=== PATIENT | male | born 1960 | race Two or more races ===

== ENCOUNTER 2019-08-30 11:46 | Inpatient (IN) | payer BC ==
[~2019-08-30] VITALS: Ht 167.6 cm; Wt 127.9 kg
[2019-08-30] VITALS (21 sets, daily range): BP systolic 38–160; BP diastolic 11–84
[~2019-08-30 11:46] MED LIST: CIPR-173 PO
[2019-08-30] MEDS ORDERED: SODIUM CHLORIDE 0.9% 1,000 ML IV ONE ×3 (11:58→15:15)
[2019-08-30] MEDS ORDERED: IPRATROPIUM BROM 0.5 MG/2.5ML INH SOL NEB ONE (12:00)
[2019-08-30] MEDS ORDERED: ALBUTEROL SULF 2.5 MG/0.5ML(0.5%) NEB SOLN NEB ONE ×2 (12:00→15:00)
[2019-08-30] MEDS ORDERED: PIPERACILLIN-TAZOB 3.375GM 100 ML IV ONE (12:00)
[2019-08-30] MEDS ORDERED: methylPREDNISolone SOD SUCC 125 MG/2 ML VL IV ONE (12:00)
[2019-08-30] MEDS ORDERED: ETOMIDATE (2MG/ML) 20ML VIAL IV ONE ×3 (12:15→13:30)
[2019-08-30] MEDS ORDERED: SUCCINYLCHOLINE CHLORIDE 20 MG/ML 10ML VIAL IV ONE ×2 (12:15→13:30)
--- NOTE | 2019-08-30 12:15 | NUR ---
Respiratory note: PT WAS INTUBATED, AND PLACED ON VENT V-[address] NEVILLE. VENT IS PLUGGED INTO RED OUTLET, ALL VENT ALARMS ARE AUDIBLE, AND FUNCTIONING. AMBU BAG/MASK IS AT BEDSIDE CONNECTED TO AN O2 SOURCE. ETT IS 8.0 @ THE 23 LIP LINE, SECURED WITH A FEDERICO. NO ORAL/SKIN BREAK DOWN NOTED. BS ARE CLEAR/DIMINISHED BILATERALLY. SX FOR SCANT AMOUNT OF THIN BLOODY SECRETIONS. NO GAG REFLEX NOTED. PT SKIN IS COOL,DIAPHORETIC, AND APPEARS TO BE MOTTLED. RT GEORGE, LEAD RT MADISON, AND RN AT BEDSIDE. WILL CONTINUE TO MONITOR PT.
[2019-08-30] MEDS ORDERED: MIDAZOLAM DRIP 50 mg/50mL 50 ML IV ONE (12:34)
[2019-08-30] MEDS ORDERED: NOREPINEPHRINE 8 MG/250ML KIT 250 ML IV ONE (13:09)
[2019-08-30] MEDS: NOREPINEPHRINE 8 MG/250ML KIT 250 ML IV SCH ×2 (13:10→23:43)
[2019-08-30 13:19] LABS: Hemoglobin 11.7 g/dL (13.5-17.5)
[2019-08-30 13:22] LABS: Hematocrit 39.4 % (41.0-53.0); Mean Corpuscular Hgb Conc. 29.8 g/dL (32.0-36.0); Mean Corpuscular Volume 80.8 fL (80.0-100.0); Platelet Count (auto) 133 10^3/uL (140-450); Red Blood Cells 4.88 10^6/uL (4.5-5.90); Red Cell Distribution Width 19.3 % (11.8-14.3); White Blood Cell 20.5 10^3/uL (4.4-10.8)
[2019-08-30] MEDS ORDERED: MIDAZOLAM DRIP 50 mg/50mL 50 ML IV SCH (13:27)
[2019-08-30 13:34] LABS: INR 1.76 (0.9-1.15); Partial Thromboplastin Time 48.6 sec (23.64-32.05)
[2019-08-30 13:48] LABS: Basophils % (manual) 0 (0.0-2.0); Blast Cells 0; Eosinophils % (manual) 0 (0-7); Promyelocytes % 0; Reactive Lymphocytes 0
[2019-08-30 14:00] LABS: Band Neutrophils % (manual) 20; Lymphocytes % (manual) 11 (10.0-50.0); Metamyelocytes % 10; Monocytes % (manual) 6 (0-12); Myelocytes % 5
[2019-08-30] MEDS ORDERED: fentaNYL Drip 2500mCg/250mlNS 250 ML IV SCH (14:54)
[2019-08-30 14:58] LABS: Sodium 138 mmol/L (136-145)
[2019-08-30 14:59] LABS: Anion Gap 21 (5-15); Blood Urea Nitrogen 43 mg/dL (7-18); Chloride 108 mmol/L (98-107); Glucose 58 mg/dL (74-106)
[2019-08-30 15:00] LABS: Alanine Aminotransferase 47 U/L (16-61); Albumin 2.8 g/dL (3.4-5.0); Alkaline Phosphatase 167 U/L (45-117); Aspartate Aminotransferase 144 U/L (15-37); Bilirubin, Total 0.5 mg/dL (0.2-1.0); Calcium 10.7 mg/dL (8.5-10.1); GFR African American 12 mL/min; GFR Non-African American 10 mL/min; Total Protein 7.2 g/dL (6.4-8.2)
[2019-08-30] MEDS ORDERED: SODIUM BICARBONATE 50ML VIAL 150 ML in D5W 5% 1,000 ML IV SCH (15:00)
[2019-08-30] MEDS ORDERED: VANCOMYCIN PER PHARMACY 0 MG IV SCH (15:00)
[2019-08-30] MEDS ORDERED: NITROGLYCERIN 0.4 MG SL TAB SL PRN (15:00)
[2019-08-30] MEDS ORDERED: MORPHINE SULF INJ 2 MG/ML SYRINGE 1ML IV PRN (15:00)
[2019-08-30] MEDS ORDERED: IPRATROPIUM BROM 0.5 MG/2.5ML INH SOL NEB SCH (15:00)
[2019-08-30] MEDS ORDERED: ALBUTEROL SULF 2.5 MG/0.5ML(0.5%) NEB SOLN NEB SCH (15:00)
[2019-08-30] MEDS ORDERED: ONDANSETRON HCL 4 MG/2 ML VIAL IV PRN (15:00)
[2019-08-30] MEDS ORDERED: DEXTROSE (50%) 50ML SYRG IV PRN (15:00)
[2019-08-30 15:03] LABS: Carbon Dioxide 9 mmol/L (21-32); Potassium 5.7 mmol/L (3.5-5.1)
[2019-08-30 15:05] LABS: Lactic Acid w/Reflex 9.7 mmol/L (0.4-2.0)
--- NOTE | 2019-08-30 15:05 | NUR ---
Respiratory note: DR NEVILLE READ BACK CRITICAL ABG RESULTS. HE GAVE ORDER TO TITRATE FIO2 FROM 100% FIO2 TO 70% FIO2. PT TOLERATING CHANGE WELL.
[2019-08-30] MEDS ORDERED: cefTRIAXone 1GM/50ML D5W 50 ML IV SCH (15:09)
[2019-08-30] MEDS ORDERED: VANCOMYCIN 1GM/250ML 250 ML IV ONE (15:30)
[2019-08-30] MEDS: MIDAZOLAM DRIP 50 mg/50mL 50 ML IV SCH ×2 (15:31→23:42)
[2019-08-30] MEDS ORDERED: DEXTROSE (50%) 50ML SYRG IV ONE (15:45)
[2019-08-30] MEDS ORDERED: SODIUM BICARBONATE 8.4 % INJ 50ML VIAL IV ONE ×3 (15:45→21:30)
[2019-08-30] MEDS ORDERED: CALCIUM GLUC 4.65meq/50ml D5AE 50 ML IV ONE (15:45)
[2019-08-30] MEDS ORDERED: VASOPRESSIN 50 UNITS in D5W 5% 247.5 ML IV SCH (17:15)
[2019-08-30] MEDS: ACCU-CHEK COMFORT CURVE STRIP VI SCH (18:00)
[2019-08-30] MEDS: PHENYLEPHRINE INJ 20 MG in SODIUM CHL 0.9% 250 ML IV SCH ×2 (18:29→22:54)
[2019-08-30] MEDS: IPRATROPIUM BROM 0.5 MG/2.5ML INH SOL NEB SCH (18:57)
[2019-08-30] MEDS: ALBUTEROL SULF 2.5 MG/0.5ML(0.5%) NEB SOLN NEB SCH (18:58)
[2019-08-30] MEDS: InsuLIN REG 1unit/0.01ml Soln (100units/ml) SC SCH (19:30)
[2019-08-30 19:55] LABS: Anion Gap 19 (5-15); BUN/Creatinine Ratio 7.5; Blood Urea Nitrogen 50 mg/dL (7-18); Carbon Dioxide 10 mmol/L (21-32); Chloride 108 mmol/L (98-107); GFR African American 11 mL/min; GFR Non-African American 9 mL/min; Glucose 170 mg/dL (74-106); Sodium 137 mmol/L (136-145)
[2019-08-30 20:10] LABS: Potassium 5.6 mmol/L (3.5-5.1)
--- NOTE | 2019-08-30 20:19 | NUR ---
Critical LAB, potassium Received call from LAB, reported K at 5.6. Called LAB back and reported that Pt still physically at ER, asked the staff to call and report ER.
--- NOTE | 2019-08-30 20:25 | NUR ---
Admit to ICU 104 MARY PARNELL admitted to ICU via gurney on diagnostic cardiac sonographer, and portable 02 and ambu bagging with RT team and ER nurse. Patient transferred to bed, connected to unit monitoring and oxygen and ventilator. Patient intubated and sedated, will introduce myself as primary RN to family, including ICU admission info, unit, room, bed, and unit policies regarding patient care and visiting hours.
--- NOTE | 2019-08-30 20:45 | NUR ---
Hypotension/ fever/ Critical potassium/ acidosis Patient with fever of 102.3F, HR 140's tachycardia, gasping breathing probably due to acidosis, will apply cooling measures and taper vasopressor, will call Hospitalist for hyperkalemia. ABG resulted, julio cesar Zacarias MD, no new Rx, repeat AB in am. 21.20pm Stefan SNACK STEWARDESS called, condition notified, new orders received, SNACK STEWARDESS will came in for visit and check on patient, See order sheet and EMAR for info. Continue care.
[2019-08-30] MEDS: PIPERACILLIN-TAZOB 2.25GM 50 ML IV SCH (21:56)
[2019-08-30] MEDS ORDERED: SODIUM ZIRCONIUM CYCL 10 GM PAK GT ONE (22:00)
[2019-08-30] MEDS: SODIUM BICARBONATE 50ML VIAL 150 ML in D5W 5% 1,000 ML IV SCH ×2 (22:53→23:43)
--- NOTE | 2019-08-30 23:14 | NUR ---
See RASS scale intervention in the IV spreadsheet Addendum: 08/30/19 at 2316 by Dany Gibbs RN Amended: Links added.
[2019-08-31] VITALS (90 sets, daily range): BP systolic 80–128; BP diastolic 32–77
--- NOTE | 2019-08-31 | NUR ---
Condition update/ fever Temp 102.6 F rectally, not decreasing with cooling measures. This nurse will paged Hospitalist and ask for antipyretic, will put cooling blankets for fever. HR and RR high due to fever, see v/s sheets.
[2019-08-31] MEDS: ACCU-CHEK COMFORT CURVE STRIP VI SCH ×5 (00:25→23:38)
[2019-08-31] MEDS: InsuLIN REG 1unit/0.01ml Soln (100units/ml) SC SCH ×5 (00:26→23:38)
[2019-08-31] MEDS: ALBUTEROL SULF 2.5 MG/0.5ML(0.5%) NEB SOLN NEB SCH ×3 (00:34→18:32)
[2019-08-31] MEDS: IPRATROPIUM BROM 0.5 MG/2.5ML INH SOL NEB SCH ×3 (00:34→18:32)
[2019-08-31] MEDS: PHENYLEPHRINE INJ 20 MG in SODIUM CHL 0.9% 250 ML IV SCH ×3 (01:21→09:22)
[2019-08-31] MEDS: ACETAMINOPHEN 325 MG TAB PO PRN (01:21)
[2019-08-31] MEDS ORDERED: PHENYLEPHRINE IV 500 ML IV ONE (02:21)
[2019-08-31 04:12] LABS: Hematocrit 36.8 % (41.0-53.0); Hemoglobin 11.4 g/dL (13.5-17.5); Mean Corpuscular Hemoglobin 23.3 pg (28.0-32.0); Mean Corpuscular Volume 75.2 fL (80.0-100.0); Platelet Count (auto) 62 10^3/uL (140-450); Red Blood Cells 4.89 10^6/uL (4.5-5.90); Red Cell Distribution Width 18.6 % (11.8-14.3); White Blood Cell 16.5 10^3/uL (4.4-10.8)
[2019-08-31 04:18] LABS: Basophils % (manual) 0 (0.0-2.0); Blast Cells 0; Eosinophils % (manual) 0 (0-7); Metamyelocytes % 0; Myelocytes % 0; Promyelocytes % 0; Reactive Lymphocytes 0
[2019-08-31] MEDS: SODIUM BICARBONATE 50ML VIAL 150 ML in D5W 5% 1,000 ML IV SCH ×2 (04:28→09:49)
[2019-08-31] MEDS: NOREPINEPHRINE 8 MG/250ML KIT 250 ML IV SCH ×2 (04:28→09:22)
[2019-08-31 04:36] LABS: Calcium 6.4 mg/dL (8.5-10.1)
[2019-08-31 04:55] LABS: BUN/Creatinine Ratio 8.9; Bilirubin, Total 0.7 mg/dL (0.2-1.0); Total Protein 5.5 g/dL (6.4-8.2)
--- NOTE | 2019-08-31 05:34 | NUR ---
Critical Trop Trop 3.480. paged Hospitalist. Stefan COST ACCOUNTANT called back, ordered to consult Severity Of Illness Coordinator.
[2019-08-31 05:52] LABS: Band Neutrophils % (manual) 14; Lymphocytes % (manual) 12 (10.0-50.0); Monocytes % (manual) 15 (0-12)
[2019-08-31] MEDS: PIPERACILLIN-TAZOB 2.25GM 50 ML IV SCH ×3 (05:52→22:00)
[2019-08-31] MEDS: MIDAZOLAM DRIP 50 mg/50mL 50 ML IV SCH ×3 (05:54→20:47)
--- NOTE | 2019-08-31 07:41 | NUR ---
Unable to weigh, bedscale broken. Addendum: 08/31/19 at 0741 by Dany Gibbs RN Amended: Links added.
[2019-08-31] MEDS ORDERED: LANS15CA21 PO (07:46)
[2019-08-31] MEDS ORDERED: RANI-185 PO (07:46)
--- NOTE | 2019-08-31 07:47 | NUR ---
CALL RECEIVED FROM REUBEN ESCOBAR TO REQUEST REPEAT ABG, ORDER PLACED, R.T. NOTIFIED.
--- NOTE | 2019-08-31 08:00 | NUR ---
CALL RECEIVED FROM PULMONOLOGY/UROLOGY CONSULT DR EISENBERG UPDATED ON PATIENT'S STATUS, LABS, ABG RESULTS AND DRIPS. NO ORDERS AT THIS TIME. 0808 - UROLOGY CONSULT PLACED - DR ZAMORA TO CONSULT, MESSAGE LEFT WITH CHRISTI AT DR ZAMORA'S OFFICE.
[2019-08-31] MEDS ORDERED: PHENYLEPHRINE IV 250 ML IV ONE ×2 (09:08→11:56)
--- NOTE | 2019-08-31 09:22 | NUR ---
CONTACT PHARMACY TO REQUEST D5 WITH 3 AMPS SODIUM BICARB ORDERED BY MD, WILL AWAIT RECEIPT FOR ADMINISTRATION.
--- NOTE | 2019-08-31 09:27 | NUR ---
PAGED HOSPITALIST TO REQUEST SECONDARY SEDATIVE - RESPIRATORY RATE IN THE MID TO HIGH 30'S AND NOTED PATIENT INCREASE WORK OF BREATHING. DR REYNOLDS RETURNED CALL AND ORDERED PROVIDED.
--- NOTE | 2019-08-31 09:41 | NUR ---
CALL FROM PHARMACY REGARDING FENTANYL DRIP, PHARMACISTS WILL MIX AND SEND TO ER. RECEIVED D5 WITH 3 AMPS SODIUM BICART WILL ADMINISTER.
--- NOTE | 2019-08-31 10:02 | NUR ---
CALL TO PHARMACY AWAITING FENTANYL DRIP, PER TECH "STILL WORKING ON IT - ABOUT 15 MINUTES".
[2019-08-31] MEDS: fentaNYL Drip 2500mCg/250mlNS 250 ML IV SCH (10:24)
[2019-08-31] MEDS: PANTOPRAZOLE 40 MG/10 ML VIAL INJ IV SCH (10:24)
--- NOTE | 2019-08-31 11:30 | NUR ---
HOSPITALIST/PULMONOLOGY VISIT DR REYNOLDS AND DR OROSCO AT BEDSIDE, BOTH MD'S UPDATED NO PATIENT'S STATUS, DR REYNOLDS CONTACTED DR ZAMORA AND NOTIFIED OF PENDING CONSULT. ORDERS RECEIVED AND WILL BE CARRIED OUT.
[2019-08-31] MEDS ORDERED: SODIUM BICARBONATE 50ML VIAL 150 ML in D5W 5% 1,000 ML IV SCH (11:45)
[2019-08-31] MEDS: VASOPRESSIN 50 UNITS in D5W 5% 247.5 ML IV SCH (12:23)
--- NOTE | 2019-08-31 13:00 | NUR ---
WOUND CARE NOTE: IN TO SEE PATIENT AT THIS TIME PER WOUND CARE CONSULT REQUEST. [facility] WITH DIAGNOSIS OF SEPTIC SHOCK. PATIENT CURRENTLY IS IN ICU, TING SCORE IS LOW AT 10. HE IS INTUBATED, SEDATED, ON MULTIPLE DRIPS/VASOPRESSORS. PATIENT IS NOTED TO HAVE A DARK PURPLE, EDEMATOUS PENIS, WITH NO OPEN AREAS NOTED. THERE IS SANGUINOUS DRAINAGE NOTED AT THE MEATUS. THIS COULD BE FROM TRAUMA WHEN INSERTING MENSAH CATHETER. PHOTOGRAPHED FOR REFERENCE. LEFT OPEN TO AIR. THERE IS A UROLOGY CONSULT PENDING. WILL DEFER ANY/ALL RECOMMENDATIONS TO UROLOGIST AT THIS POINT. PATIENT ALSO IS RECEIVING COOLING MEASURES, WITH COOLING BLANKET. HIS SKIN IS MOTTLED TO BILATERAL UPPER AND LOWER EXTREMITIES, WELL ABDOMEN. WOUND PHOTOS TAKEN OF SKIN MOTTLING FOR REFERENCE. LEFT OPEN TO AIR. SACRUM IS NOTED TO BE ERYTHREMIC TO INTRAGLUTEAL SKIN, BUT IS BLANCHABLE. NO OTHER SKIN INTEGRITY ISSUES NOTED AT THIS TIME. RECOMMEND: FREQUENT TURN SCHEDULE Q 2 HOURS, PRN CONDITION PERMITS, WITH PRESSURE REDISTRIBUTION USING PILLOWS/WEDGES, BID/PRN APPLICATION MOISTURE BARRIER CREAM, OPTIFOAM GENTLE SACRAL DRESSING PREVENTATIVE, SPECIALTY BARIATRIC AIR BED PREVENTATIVE, DIETARY CONSULT, CONTINUED MONITORING BY WOUND CARE TEAM. SKIN/WOUND CARE PLAN IMPLEMENTED AT THIS TIME. Addendum: 08/31/19 at 1725 by Carolina West RN Amended: Links added.
[2019-08-31] MEDS ORDERED: DEXTROSE (50%) 50ML SYRG IV PRN (13:30)
[2019-08-31 13:57] LABS: Urine Bacteria FEW /hpf (None Seen); Urine Blood 3+ /uL (Negative); Urine Mucus FEW (None Seen); Urine Specific Gravity 1.025 (1.001-1.035); Urine WBC 45 /hpf (0 - 3); Urine WBC Clumps PRESENT /hpf (None Seen)
--- NOTE | 2019-08-31 14:00 | NUR ---
WOUND CARE NOTE: SPECIALTY BARIATRIC AIR BED ORDERED AT THIS TIME. PATIENT TO BE PLACED, PENDING DELIVERY BY [facility]
--- NOTE | 2019-08-31 14:03 | NUR ---
Nutrition Assessment Notes Please refer to link for full assessment notes Est energy needs: [id number] kcals (14-18 kcals/kgBW) Est protein needs: 101-134 gms/day (1.2-1.6 gm/kgAdjBW) Will continue to monitor and follow up prn. Addendum: 08/31/19 at [address] Amended: Links added.
--- NOTE | 2019-08-31 14:10 | NUR ---
ARTERIAL LINE INSERTION DR EISENBERG INSERTED ARTERIAL LINE TO LEFT AXILLARY ARTERY.
--- NOTE | 2019-08-31 14:14 | NUR ---
CARDIOLOGY CONSULT CALLED DR CRISTOBAL CONSULTED, SPOKE WITH PBX.
--- NOTE | 2019-08-31 14:15 | NUR ---
Respiratory note: INCREASED FIO2 TO 60% POX WAS AT 85%. SUCTION PT. SCANT BLOOD TINGED.
--- NOTE | 2019-08-31 14:17 | NUR ---
FIO2 INCREASED PATIENT OXYGENATING 88% ON 40% FIO2 - R.T. INCREASED FIO2 TO 60% - CURRENT OXYGEN AT 91%. DR FAINA DYER.
--- NOTE | 2019-08-31 14:50 | NUR ---
FAMILY AT BEDSIDE PATIENT'S SONS AND BROTHER UPDATE ON PATIENT'S STATUS. ALL QUESTIONS AND CONCERNS ADDRESSED, ALL VERBALIZED UNDERSTANDING.
[2019-08-31] MEDS: CLINDAMYCIN 600MG IV 50 ML IV SCH ×2 (15:19→22:00)
[2019-08-31] MEDS: HYDROCORTISONE SOD SUCC 100 MG/2ML INJ VIAL IV SCH ×2 (15:20→22:00)
[2019-08-31] MEDS: ALBUMIN 25% 100 ML IV SCH ×2 (15:20→19:45)
--- NOTE | 2019-08-31 16:12 | NUR ---
CALL RECEIVED FROM NEPHROLOGY DR GOMES UPDATED ON PATIENT'S STATUS AND REASON FOR CONSULT. DR GOMES VERBALIZED UNDERSTANDING AND WILL BE SEEING PATIENT SOON, DR GOMES WILL SPEAK WITH FAMILY WELL, FAMILY AWARE.
--- NOTE | 2019-08-31 17:32 | NUR ---
UROLOGY AT BEDSIDE DR ZAMORA VISITS, EVALUATES PATIENT. DR ZAMORA DISCUSSED PLAN OF CARE AND PROGNOSIS WITH PATIENT'S SPOUSE ARTHUR AND ELDEST SON DEANNA. ALL VERBALIZED UNDERSTANDING. DR ZAMORA ORDERED SCROTAL ULTRA SOUNDS NON STAT. ULTRA SOUND TECH AWARE.
--- NOTE | 2019-08-31 18:20 | NUR ---
NEPHROLOGY VISITS DR GOMES UPDATED ON PATIENT'S STATUS, DR GOMES DISCUSSED PLAN OF CARE AND PROGNOSIS WITH PATIENT'S SPOUSE AND THREE ADULT CHILDREN AT BEDSIDE IN LENGTH. NO VERBAL ORDERS RECEIVED AT THIS TIME.
--- NOTE | 2019-08-31 19:00 | NUR ---
END OF SHIFT NOTE PATIENT MECHANICALLY VENTILATED, SEDATED ON VASOPRESSORS DOCUMENTED (SEE IV SPREADSHEET). NO DISTRESS NOTED, RESPIRATIONS EVEN AND UNLABORED. ENDORSED CONTINUED CARE TO NIGHT ALAN GIFFORD.
--- NOTE | 2019-08-31 19:45 | NUR ---
report received and assumed care; see interventions for assessment; vs stable at this time with patient on levophed and vasopressin gtt; pt. intubated and sedated; no s/s of pain at this time and pt. on fentanyl gtt; will cont. to monitor.
--- NOTE | 2019-08-31 20:00 | NUR ---
CARDIOLOGY AT BEDSIDE DR CRISTOBAL VISITS - UPDATED ON PATIENT'S STATUS. ORDERS FOR TROPONIN RECHECK RECEIVED AND RECOMMEND TRANSFER TO HIGHER LEVEL OF CARE FOR HOSPITALIST IN THE MORNING. JENA INVESTMENT FUND MANAGER RN AWARE.
[2019-08-31 22:40] LABS: Hematocrit 30.5 % (41.0-53.0); Mean Corpuscular Hemoglobin 24.1 pg (28.0-32.0); Mean Corpuscular Hgb Conc. 32.9 g/dL (32.0-36.0); Mean Corpuscular Volume 73.1 fL (80.0-100.0); Red Blood Cells 4.17 10^6/uL (4.5-5.90); Red Cell Distribution Width 18.7 % (11.8-14.3); White Blood Cell 14.5 10^3/uL (4.4-10.8)
[2019-08-31 22:51] LABS: Platelet Count (auto) 18 10^3/uL (140-450)
[2019-08-31 22:53] LABS: Basophils % (manual) 0 (0.0-2.0); Blast Cells 0; Eosinophils % (manual) 0 (0-7); Promyelocytes % 0; Reactive Lymphocytes 0
[2019-08-31 22:56] LABS: BUN/Creatinine Ratio 10.2; Calcium 6.5 mg/dL (8.5-10.1)
[2019-09-01] VITALS (109 sets, daily range): BP systolic 90–179; BP diastolic 57–169
[2019-09-01 00:30] LABS: Band Neutrophils % (manual) 41; Lymphocytes % (manual) 8 (10.0-50.0); Metamyelocytes % 1; Monocytes % (manual) 2 (0-12); Myelocytes % 1
[2019-09-01] MEDS: IPRATROPIUM BROM 0.5 MG/2.5ML INH SOL NEB SCH ×4 (00:30→18:05)
[2019-09-01] MEDS: ALBUTEROL SULF 2.5 MG/0.5ML(0.5%) NEB SOLN NEB SCH ×4 (00:30→18:05)
--- NOTE | 2019-09-01 02:30 | NUR ---
pt. had HCG wipe bath and partial linen change; will cont. to monitor.
[2019-09-01] MEDS: ALBUMIN 25% 100 ML IV SCH (03:45)
[2019-09-01 04:39] LABS: Hematocrit 28.3 % (41.0-53.0); Hemoglobin 9.2 g/dL (13.5-17.5); Mean Corpuscular Hemoglobin 23.7 pg (28.0-32.0); Mean Corpuscular Hgb Conc. 32.6 g/dL (32.0-36.0); Mean Corpuscular Volume 72.9 fL (80.0-100.0); Red Blood Cells 3.89 10^6/uL (4.5-5.90); Red Cell Distribution Width 18.3 % (11.8-14.3); White Blood Cell 14.3 10^3/uL (4.4-10.8)
[2019-09-01 04:53] LABS: Albumin 2.1 g/dL (3.4-5.0); Calcium 6.7 mg/dL (8.5-10.1); Platelet Count (auto) 15 10^3/uL (140-450); Potassium 3.1 mmol/L (3.5-5.1)
[2019-09-01 04:54] LABS: Basophils % (manual) 0 (0.0-2.0); Blast Cells 0; Eosinophils % (manual) 0 (0-7); Metamyelocytes % 0; Myelocytes % 0; Promyelocytes % 0; Reactive Lymphocytes 0
[2019-09-01 04:59] LABS: BUN/Creatinine Ratio 10.1
[2019-09-01 05:04] LABS: Total Protein 5.1 g/dL (6.4-8.2)
[2019-09-01 05:43] LABS: Band Neutrophils % (manual) 15; Lymphocytes % (manual) 4 (10.0-50.0); Monocytes % (manual) 6 (0-12)
[2019-09-01] MEDS: HYDROCORTISONE SOD SUCC 100 MG/2ML INJ VIAL IV SCH ×3 (06:00→22:42)
[2019-09-01] MEDS: CLINDAMYCIN 600MG IV 50 ML IV SCH ×3 (06:00→22:43)
[2019-09-01] MEDS: ACCU-CHEK COMFORT CURVE STRIP VI SCH ×4 (06:43→23:25)
[2019-09-01] MEDS: InsuLIN REG 1unit/0.01ml Soln (100units/ml) SC SCH ×4 (06:44→23:31)
--- NOTE | 2019-09-01 07:30 | NUR ---
report given to ervin boyer.
[2019-09-01] MEDS: PIPERACILLIN-TAZOB 2.25GM 50 ML IV SCH ×3 (07:35→22:43)
--- NOTE | 2019-09-01 07:42 | NUR ---
CALL RECEIVED FROM NEPHROLOGY DR GOMES UPDATED ON PATIENT'S STATUS AND MORNING LABS. ORDERS FOR DIALYSIS CATHETER INSERTION, BLOOD PRODUCT ADMINISTRATION AND POSSIBLE DIALYSIS TODAY.
--- NOTE | 2019-09-01 08:06 | NUR ---
PULMONOLGY VISIT/CONTACT BLOOD BANK DR EISENBERG UPDATED ON PATIENT'S STATUS, DRIPS, MORNING LABS AND DR GOMES'S RECOMMENDATIONS AND ORDERS. DR EISENBERG VERBALIZED UNDERSTANDING AND WOULD LIKE TO INSET DIALYSIS CATHETER THIS MORNING BUT WOULD LIKE BLOOD PRODUCTS ADMINISTERED STAT PRIOR TO DOING PROCEDURE. SPOKE WITH CARISSA REGARDING STAT ORDER FOR BLOOD PRODUCTS. PER DR EISENBERG WANTS FFP STAT BEFORE INSERTING DIALYSIS CATHETER. CARISSA WILL CHECK PLATELETS THAT ARE INHOUSE AND CALL THIS NURSE BACK. WILL NOTIFY FAMILY FOR CONSENT ON BLOOD PRODUCTS.
--- NOTE | 2019-09-01 08:47 | NUR ---
ONE UNIT PLATELETS TRANSFUSING ORDERED BY TINY LINN AND DOCUMENTED, WILL MONITOR FOR S/S OF TRANSFUSION REACTION.
--- NOTE | 2019-09-01 09:17 | NUR ---
END OF PLATELET TRANSFUSION VSS AND DOCUMENTED, NO S/S OF TRANSFUSION REACTION NOTED.
[2019-09-01] MEDS: fentaNYL Drip 2500mCg/250mlNS 250 ML IV SCH (09:29)
--- NOTE | 2019-09-01 09:36 | NUR ---
FIRST UNIT FFP TRANSFUSING ORDERED BY MD. FRANKS AND DOCUMENTED, WILL MONITOR FOR S/S OF TRANSFUSION REACTION.
--- NOTE | 2019-09-01 09:47 | NUR ---
FIRST UNIT FFP TRANSFUSION COMPLETE VSS AND DOCUMENTED, NO S/S OF TRANSFUSION REACTION NOTED.
--- NOTE | 2019-09-01 10:05 | NUR ---
SECOND UNIT FFP TRANSFUSING ORDERED BY MD. FRANKS AND DOCUMENTED, WILL MONITOR FOR S/S OF TRANSFUSION REACTION.
--- NOTE | 2019-09-01 10:20 | NUR ---
DIALYSIS CATHETER INSERTION BY DR OROSCO TO LEFT SUBCLAVIAN - CXR ORDERED AND REVIEWED BY DR OROSCO. AREA SLIGHTLY BLEEDING, DRESSING AND LIGHT PRESSURE APPLIED.
--- NOTE | 2019-09-01 10:29 | NUR ---
SECOND FFP TRANSFUSION COMPLETED ORDERED BY MD. NO S/S OF TRANSFUSION REACTION NOTED. WILL CONTINUE TO MONITOR.
[2019-09-01] MEDS: PHENYLEPHRINE INJ 20 MG in SODIUM CHL 0.9% 250 ML IV SCH ×2 (10:54→19:14)
--- NOTE | 2019-09-01 10:59 | NUR ---
FAMILY AT BEDSIDE PATIENT'S SPOUSE, SON AND PATIENT'S SISTER AT BEDSIDE, ALL UPDATED ON PATIENT'S STATUS. ALL VERBALIZED UNDERSTANDING. WILL CONTINUE TO MONITOR.
--- NOTE | 2019-09-01 11:00 | NUR ---
DIALYSIS NURSE AT BEDSIDE
--- NOTE | 2019-09-01 11:14 | NUR ---
SPOKE WITH UROLOGY DR ZAMORA UPDATED ON PATIENT'S STATUS, DRIPS, VS AND MORNING LABS. DR ZAMORA ALSO AWARE OF BLOOD PRODUCTS ADMINISTERED. DR ZAMORA ALSO AWARE OF SCROTAL ULTRA SOUND RESULTS, RESULTS READ TO HIM VIA TELEPHONE, MD VERBALIZED UNDERSTANDING. NO ORDERS AT THIS TIME.
--- NOTE | 2019-09-01 12:07 | NUR ---
CALL RECEIVED FROM NEPHROLOGY DR GOMES UPDATED ON PATIENT'S STATUS AND POTASSIUM, NO ORDERS AT THIS TIME. DR GOMES SPOKE WITH OLIVER AUTOMOBILE DETAILER.
--- NOTE | 2019-09-01 13:52 | NUR ---
HOSPITALIST VISITS DR Rhoda BRADLEY UPDATED ON PATIENT'S STATUS, DISCUSSED PLAN OF CARE WITH PATIENT'S SPOUSE AND ELDEST SON. FAMILY MEMBERS VERBALIZED UNDERSTANDING. ANODIZE MACHINE OPERATOR AT BEDSIDE.
--- NOTE | 2019-09-01 14:45 | NUR ---
DIALYSIS COMPLETED FILTRATION ONLY, NO FLUID PULLED PER DR GOMES ORDER. PATIENT TOLERATED WELL.
[2019-09-01] MEDS: PANTOPRAZOLE 40 MG/10 ML VIAL INJ IV SCH (15:13)
--- NOTE | 2019-09-01 15:15 | NUR ---
DR GOMES VISITS DOCTOR UPDATED ON PATIENT'S STATUS, NO ORDERS RECEIVED AT THIS TIME.
[2019-09-01] MEDS: VASOPRESSIN 50 UNITS in D5W 5% 247.5 ML IV SCH ×2 (15:44→17:00)
[2019-09-01] MEDS: NOREPINEPHRINE 8 MG/250ML KIT 250 ML IV SCH (15:50)
--- NOTE | 2019-09-01 18:00 | NUR ---
RETURN CALL FROM PULMONOLOGY RETURN CALL FROM DR EISENBERG, UPDATED ON PATIENT'S STATUS AND ABG RESULTS, ORDERS TO DECREASE RR TO 14 RECEIVED, R.T. AWARE.
--- NOTE | 2019-09-01 19:06 | NUR ---
END OF SHIFT NOTE PATIENT MECHANICALLY VENTILATED, LIGHTLY SEDATED ON VASOPRESSIN. PATIENT OPENS EYES WITH STIMULATION AND FACIAL GRIMACING WHEN PERFORMING ORAL CARE. VSS AND DOCUMENTED. FALL AND SAFETY PRECAUTIONS IN PLACE. ENDORSED CONTINUED CARE TO DEVELOPMENT ASSOCIATE RN.
--- NOTE | 2019-09-01 19:30 | NUR ---
REPORT RECEIVED, ASSUMED CARE.
--- NOTE | 2019-09-01 19:45 | NUR ---
FAMILY @ BEDSIDE, POC EXPLAINED TO BOTH PT AND FAMILY. PT INTUBATED AND SEDATED FAMILY RESPONDED WITH UNDERSTANDING AND COMPLIANCE. ALL QUESTIONS AND CONCERNS ADDRESSED.
--- NOTE | 2019-09-01 20:00 | NUR ---
NOTIFIED HOSPITALIST, NO PALPABLE OR DOPPLER PULSES TO RT HAND, ORDERS RECEIVED.
--- NOTE | 2019-09-01 20:20 | NUR ---
NOTIFIED U/S OF ORDER.
--- NOTE | 2019-09-01 21:06 | NUR ---
U/S @ BEDSIDE FOR PROCEDURE.
[2019-09-01] MEDS: MIDAZOLAM DRIP 50 mg/50mL 50 ML IV SCH (22:35)
[2019-09-02] VITALS (107 sets, daily range): BP systolic 87–142; BP diastolic 56–82
[2019-09-02] MEDS: ALBUTEROL SULF 2.5 MG/0.5ML(0.5%) NEB SOLN NEB SCH ×4 (00:12→18:36)
[2019-09-02] MEDS: IPRATROPIUM BROM 0.5 MG/2.5ML INH SOL NEB SCH ×4 (00:12→18:36)
[2019-09-02] MEDS: PHENYLEPHRINE INJ 20 MG in SODIUM CHL 0.9% 250 ML IV SCH ×3 (01:09→20:14)
--- NOTE | 2019-09-02 01:21 | NUR ---
PER MD GOMES RECOMMENDS:2) If pt is still NPO in the next 48 hrs, consider EN support of Jevity 1.2 @ 78 ml/hr goal rate 3) Gradually advance pt to oral diet of Cardic 2Na LoFat, LoChol when medically feasible, as tolerated.
--- NOTE | 2019-09-02 02:51 | NUR ---
BARIATRIC BED:UNKNOWN IF BED IN UNIT IS FOR PT. NOTIFIED AUTOMOBILE DRIVERS AND RT THAT PT O2 SATS DROP INTO THE 80'S WHEN LOWERING HOB, ALSO HAD TO RESTART LEVOPHED GTT AND WENT UP ON VASOPRESSIN. RT DOES NOT RECOMMEND TRYING TO TRANSFER PT AT THIS TIME. PT TOO UNSTABLE TO TRANSFER @ THIS TIME. WILL CONT TO MONITOR AND GIVE IN REPORT.
[2019-09-02 04:32] LABS: Red Blood Cells 3.36 10^6/uL (4.5-5.90)
[2019-09-02 04:33] LABS: Hematocrit 24.6 % (41.0-53.0); Hemoglobin 8.1 g/dL (13.5-17.5); Mean Corpuscular Hemoglobin 24.1 pg (28.0-32.0); Mean Corpuscular Volume 73.1 fL (80.0-100.0); Platelet Count (auto) 34 10^3/uL (140-450); Red Cell Distribution Width 18.6 % (11.8-14.3); White Blood Cell 11.1 10^3/uL (4.4-10.8)
[2019-09-02 04:36] LABS: Basophils % (manual) 0 (0.0-2.0); Blast Cells 0; Eosinophils % (manual) 0 (0-7); Metamyelocytes % 0; Myelocytes % 0; Promyelocytes % 0; Reactive Lymphocytes 0
--- NOTE | 2019-09-02 04:44 | NUR ---
Patient bathe/linen change Patient given partial bath. Skin integrity assessed for any changes. Linens changed. Patient repositioned for comfort.
--- NOTE | 2019-09-02 04:45 | NUR ---
PT DOES NOT TOLERATE TURNING TO LEFT WELL.
[2019-09-02 04:50] LABS: Albumin 2.1 g/dL (3.4-5.0); BUN/Creatinine Ratio 10.1; Calcium 7.6 mg/dL (8.5-10.1); Potassium 3.4 mmol/L (3.5-5.1)
[2019-09-02 04:53] LABS: Bilirubin, Total 1.7 mg/dL (0.2-1.0); Total Protein 5.5 g/dL (6.4-8.2)
[2019-09-02 05:38] LABS: Band Neutrophils % (manual) 18; Lymphocytes % (manual) 7 (10.0-50.0)
[2019-09-02 05:39] LABS: Monocytes % (manual) 1 (0-12)
[2019-09-02] MEDS: CLINDAMYCIN 600MG IV 50 ML IV SCH ×3 (05:57→22:11)
[2019-09-02] MEDS: HYDROCORTISONE SOD SUCC 100 MG/2ML INJ VIAL IV SCH ×3 (05:57→22:10)
[2019-09-02] MEDS: PIPERACILLIN-TAZOB 2.25GM 50 ML IV SCH ×3 (05:58→22:10)
[2019-09-02] MEDS: InsuLIN REG 1unit/0.01ml Soln (100units/ml) SC SCH ×3 (05:58→18:03)
[2019-09-02] MEDS: ACCU-CHEK COMFORT CURVE STRIP VI SCH ×3 (05:58→18:02)
--- NOTE | 2019-09-02 06:36 | NUR ---
REMOVED LINENS AND PLACED ICE PACKS.
--- NOTE | 2019-09-02 07:00 | NUR ---
REPORT RECEIVED FROM CAR WASH ATTENDANT NURSE. PATIENT RESTING IN BED AT THIS TIME. RESPIRATIONS EVEN AND UNLABORED INTUBATED AND LIGHTLY SEDATED. NO SIGNS OF ACUTE DISTRESS NOTED. BED IN LOW POSITION. WILL CONTINUE TO MONITOR.
[2019-09-02] MEDS: VASOPRESSIN 50 UNITS in D5W 5% 247.5 ML IV SCH (08:30)
--- NOTE | 2019-09-02 08:30 | NUR ---
DR Ramos BRADLEY AT BEDSIDE TO ASSESS PATIENT AND DISCUSS PLAN OF CARE.
--- NOTE | 2019-09-02 09:15 | NUR ---
TRANSFER TO SPECIALTY BED Assisted Michelle GIFFORD in transferring pt. to a specialty bed with the help of other RNs in the unit, pt. tolerated procedure well, no other problems noted.
--- NOTE | 2019-09-02 09:15 | NUR ---
COOLING MEASURES PATIENT PLACED ON COOLING BLANKET DUE TO INCREASED TEMP. WILL CONTINUE TO MONITOR.
[2019-09-02] MEDS: fentaNYL Drip 2500mCg/250mlNS 250 ML IV SCH ×2 (09:29→20:00)
[2019-09-02] MEDS: PANTOPRAZOLE 40 MG/10 ML VIAL INJ IV SCH (09:33)
--- NOTE | 2019-09-02 09:43 | NUR ---
SKIN TEAR NOTED TO RIGHT LI PHOTO TAKEN APPLIED OPTIFOAM TO SITE.
--- NOTE | 2019-09-02 12:25 | NUR ---
DR GOMES AT BEDSIDE TO ASSESS PATIENT AND DISCUSS PLAN OF CARE WITH PATIENTS FAMILY. PER MD NO DIALYSIS TODAY. ALL ORDERS NOTED IN CHART.
--- NOTE | 2019-09-02 16:00 | NUR ---
DR EISENBERG AT BEDSIDE TO ASSESS PATIENT AND DISCUSS PLAN OF CARE. VENTILATOR CHANGES NOTED IN CHART. PER MD ORDER HEPARIN INDUCED THROMBOCYTOPENIA PANEL.
--- NOTE | 2019-09-02 20:00 | NUR ---
ADMITTED ON 08/30/2019 THROUGH THE ER. INTUBATED IN ER. NEW RIJ CENTRAL LINE PLACED ON ADMISSION. SEE NOTES REGARDING INTIAL MENSAH INSERTION. MD DIAGNOSIS UROSEPSIS AND NSTEMI. INITIAL LACTIC ACID,BNP, POTASSIUM, BUN AND CREATININE WERE ELEVATED. FIRST DIALYSIS WAS YESTERDAY.PLAN FOR DIALYSIS TOMORROW. ECHO RESULT UNAVAILABLE. TODAY VENTILATOR MODE WAS CHANGED FROM PRESSURE CONTROL TO ASSIST CONTROL. RR IS 22, FIO2 40%, O2 SAT 94%. NSR WITHOUT ECTOPY. IS ON LEVOPHED AND VASOPRESSIN LOW DOSES. FENTANYL IS ONLY ON 50MCG. NOTED COLDNESS MID FOREARM DOWN TO TIP OF FINGERS. COLDNESS NOTED ANKLE TO TOES. DR ZAMORA HERE. INFORMED THE SON THAT IF THE PATIENT MAKES IT, HE WILL PROBABLY NEED SURGERY. HE STATED THAT THE BLADDER STONE IS THE SIZE OF A SMALL ORANGE. NOTED MOTTLING FROM ABDOMEN DOWN. TIP OF PENIS IS DARK PURPLE WITH DRIED BLOOD AT THE TIP. PLATELETS ARE LOW. BOTH HANDS ARE PARTIALLY DARK WITH FINGERTIPS BLACK. BOTH FEET ARE PARTIALLY DARK WITH BLACK TOES POSTERIORLY. ABDOMEN HAS MULTIPLE ECCHYMOTIC AREAS. HIT PANEL SENT TODAY. WAITING FOR SOME COAG STUDIES. ABDOMEN IS FIRM. RIGHT NARE NGT TO LIS, DRAINING A GREEN LIQUID. GENERALIZED PITTING EDEMA 3+.
[2019-09-02] MEDS: NOREPINEPHRINE 8 MG/250ML KIT 250 ML IV SCH (22:00)
--- NOTE | 2019-09-02 22:00 | NUR ---
DECREASING THE LEVOPHED. SBP PER LEFT ARM IS 119. CUFF IS 143. NSR WITHOUT ECTOPY. LUNGS: SCATTERED RHONCHI. SUCTIONING , BEFORE , A SMALL AMOUNT OF OLD DARK BLOOD SUCTIONED FROM THE ETT. SMALL AMOUNT OF BLOOD AND CLEAR SECRETIONS OBTAINED DURING ORAL CARE. ABDOMEN FIRM, ROUND, LARGE. VERY SMALL AMOUNT OF GREEN LIQUID SUCTIONED FROM THE RIGHT NARE NGT. NO BM. SMALL AMOUNT OF KRYSTLE LIQUID IN MENSAH WITH CHUNKS OF SEDIMENT. GENERALIZED PITTING EDEMA PERSISTS. NO CHANGE IN THE COLDNESS OR MOTTLING OF EXTREMITIES. REPOSITIONED TO BACK. PUPILS EQUAL AND SLUGGISH. OPENED EYES DURING SUCTIONING. LIGHT GAG AND COUGH. ARTERIAL LINE AND CVP REZERO'D. CHILDREN AND NIECE OF PATIENT HAVE BEEN VISITING.
[2019-09-02 22:37] LABS: Urine Bacteria FEW /hpf (None Seen); Urine Blood 3+ /uL (Negative); Urine Hyaline Cast FEW /lpf (0 - 2); Urine Mucus FEW (None Seen); Urine Specific Gravity 1.018 (1.001-1.035); Urine WBC 239 /hpf (0 - 3); Urine WBC Clumps PRESENT /hpf (None Seen)
[2019-09-03] VITALS (100 sets, daily range): BP systolic 90–139; BP diastolic 54–91
--- NOTE | 2019-09-03 | NUR ---
LEVOPHED OFF. SYSTOLIC REMAINING IN THE 130S BY CUFF. NSR WITHOUT ECTOPY. IVS SHOW NO REDNESS OR SWELLING. FAMILY IN ROOM. LUNGS CLEAR. STILL SUCTIONING A SMALL AMOUNT OF OLD BLODD FROM THE ETT. NGT IS DRAINING GREEN LIQUID IN SMALL AMOUNTS. ABDOMEN IS FIRM. NO BM. ORAL CARE DONE. OPENED EYES WITH SUCTIONING. RR 17. STABLE O2 SATURATION 93-94%. RIGHT HAND COOL. LEFT HAND WARMER. BOTH FEET FROM ANKLES DOWN ARE COLD. NO NEW DARKNESS. ACCUCHECK FROM EARLOBE.
[2019-09-03] MEDS: InsuLIN REG 1unit/0.01ml Soln (100units/ml) SC SCH ×4 (00:17→17:08)
[2019-09-03] MEDS: ACCU-CHEK COMFORT CURVE STRIP VI SCH ×4 (00:17→18:00)
[2019-09-03] MEDS: ALBUTEROL SULF 2.5 MG/0.5ML(0.5%) NEB SOLN NEB SCH ×4 (00:39→18:38)
[2019-09-03] MEDS: IPRATROPIUM BROM 0.5 MG/2.5ML INH SOL NEB SCH ×4 (00:39→18:39)
--- NOTE | 2019-09-03 02:00 | NUR ---
DECREASED THE VASOPRESSIN. HAVING DIALYSIS TODAY. SBP PER CUFF 118. ARTERIAL LINE IS 10 POINTS LOWER. REASONABLE WAVEFORM, BUT WHEN YOU FLUSH IT'S NOT STRAIGHT UP. SUCTIONED ETT FOR A SMALL AMOUNT OF DARK BLOOD CLOTS. ORAL CARE DONE. ABDOMEN FIRM. NO BOWEL SOUNDS. LOW URINE OUTPUT. URINE IS A STRAW COLOR WITH A LOT OF SEDIMENT. GENERALIZED PITTING EDEMA HAS NOT IMPROVED. NO CHANGE IN ECCHYMOSIS. NSR WITHOUT ECTOPY.
--- NOTE | 2019-09-03 03:23 | NUR ---
AM LABS DRAWN.
[2019-09-03 03:51] LABS: Basophils # (auto) 0 uL; Basophils % (auto) 0.1 % (0.0-2.0); Eosinophils # (auto) 0.1 uL; Eosinophils % (auto) 0.8 % (0.0-7.0); Hematocrit 24.2 % (41.0-53.0); Hemoglobin 7.7 g/dL (13.5-17.5); Lymphocytes # (auto) 0.9 uL; Lymphocytes % (auto) 7.8 % (10.0-50.0); Mean Corpuscular Hemoglobin 23.5 pg (28.0-32.0); Mean Corpuscular Hgb Conc. 31.8 g/dL (32.0-36.0); Monocytes # (auto) 0.8 uL; Monocytes % (auto) 6.4 % (0.0-12.0); Neutrophils # (auto) 10.2 uL; Neutrophils % (auto) 84.9 % (37.0-80.0); Platelet Count (auto) 55 10^3/uL (140-450); Red Blood Cells 3.27 10^6/uL (4.5-5.90); Red Cell Distribution Width 18.3 % (11.8-14.3)
--- NOTE | 2019-09-03 04:00 | NUR ---
CHG BATH DONE. CANNISTERS CHANGED. LUNGS CLEAR. NSR WITHOUT ECTOPY. LEFT AC IV REMOVED. ABDOMEN REMAINS FIRM, LARGE, NO BOWEL SOUNDS. RIGHT NARE NGT TO LIS DRAINING GREEN LIQUID. MENSAH : COLOR IS STRAW WITH OFF WHITE CHUNKS AND SEDIMENT. NOTED NEW UA RESULTS HAVE WORSENED.
[2019-09-03 04:06] LABS: Potassium 3.6 mmol/L (3.5-5.1)
[2019-09-03 04:08] LABS: BUN/Creatinine Ratio 11.1
[2019-09-03 04:15] LABS: Bilirubin, Total 1.3 mg/dL (0.2-1.0); Total Protein 5.7 g/dL (6.4-8.2)
[2019-09-03] MEDS: PHENYLEPHRINE INJ 20 MG in SODIUM CHL 0.9% 250 ML IV SCH ×2 (04:34→08:06)
[2019-09-03] MEDS: PIPERACILLIN-TAZOB 2.25GM 50 ML IV SCH (06:00)
[2019-09-03] MEDS: CLINDAMYCIN 600MG IV 50 ML IV SCH (06:00)
[2019-09-03] MEDS: HYDROCORTISONE SOD SUCC 100 MG/2ML INJ VIAL IV SCH ×3 (06:00→22:14)
--- NOTE | 2019-09-03 09:00 | NUR ---
DIALYSIS AT BEDSIDE ALL MEDICATIONS HELD UNTIL COMPLETION.
--- NOTE | 2019-09-03 10:00 | NUR ---
Family updated on pt status Family of SOHEILAMARY updated on patient's status and condition. All questions and concerns addressed. Son, Hakeem verbalized understanding.
--- NOTE | 2019-09-03 10:23 | NUR ---
DRESSING CDI. Addendum: 09/03/19 at 1024 by Maura Joseph RN Amended: Links added.
--- NOTE | 2019-09-03 11:16 | NUR ---
DR. REYNOLDS AT BEDSIDE MD UPDATED ON PATIENTS STATUS. NEW ORDERS IN PLACE. SEE MD NOTES/ ORDERS. NO FAMILY AT BEDSIDE.
[2019-09-03] MEDS ORDERED: TPN PER PHARMACY 0 ML IV SCH (11:30)
[2019-09-03 12:43] LABS: Magnesium 1.9 mg/dL (1.6-2.6); Phosphorus 6.3 mg/dL (2.5-4.90)
--- NOTE | 2019-09-03 13:00 | NUR ---
Family updated on pt status Family of JOHNATHON PARNELLBERTO updated on patient's status and condition. All questions and concerns addressed. Son verbalized understanding.
[2019-09-03] MEDS: levoFLOXacin 750MG 150 ML IV SCH (13:23)
[2019-09-03] MEDS: PANTOPRAZOLE 40 MG/10 ML VIAL INJ IV SCH (13:23)
[2019-09-03] MEDS: MIDAZOLAM DRIP 50 mg/50mL 50 ML IV SCH (13:23)
[2019-09-03] MEDS: NOREPINEPHRINE 8 MG/250ML KIT 250 ML IV SCH (13:23)
[2019-09-03] MEDS: VASOPRESSIN 50 UNITS in D5W 5% 247.5 ML IV SCH (13:24)
[2019-09-03] MEDS: METOCLOPRAMIDE HCL 5MG/ml INJ 2ml VIAL IV SCH ×2 (13:36→22:15)
--- NOTE | 2019-09-03 14:00 | NUR ---
ELIMINATION SMALL MUCOID, GARRETT OUTPUT NOTED FROM RECTUM. SKIN CLEANSED. OPTIFOAM IN PLACE. NG OUTPUT CONTINUES TO DRAIN LIGHT GREEN/ CLEAR DRAINAGE.
--- NOTE | 2019-09-03 16:30 | NUR ---
COST ENGINEER DR. EISENBERG UPDATED ON PATIENTS STATUS. NEW ORDERS IN PLACE. UPDATED FAMILY AT BEDSIDE.
--- NOTE | 2019-09-03 17:00 | NUR ---
Family updated on pt status Family of SOHEILAMARY updated on patient's status and condition. All questions and concerns addressed. Son, Hakeem verbalized understanding.
--- NOTE | 2019-09-03 17:00 | NUR ---
Respiratory note: CPAP TRIAL INITIATED AND PT IS NOT AWAKE ENOUGH TO CONTINUE. ИРИНА Hewitt IS AT BEDSIDE AND IS AWARE.
--- NOTE | 2019-09-03 20:00 | NUR ---
MORE AWAKE TONIGHT. INCREASED THE FENTANYL. SHANT. MOVES FACE AND ARMS. GRIMACES. NODS APPROPRIATELY. LUNGS CLEAR. STILL SUCTIONING A THIN RUST COLOR FROM THE ETT. ORAL CARE DONE. MOISTURIZER APPLIED TO BOTH LIPS. HE HAS BEEN BREATHING ABOVE THE VENTILATOR. SORES ON LOWER LIPS. ABDOMEN ROUND, LARGE AND SOFTER TODAY. REGLAN NEW TODAY. MENSAH IN PLACE DRAINING CLOUDY YELLOW LIQUID WITH SEDIMENT. 2-3+ PITTING EDEMA THROUGHOUT. ALL COAG STUDIES ARE ELEVATED. NOTED ECHHYMOTIC AREAS ON ABDOMEN, BOTH ARMS AND BOTH LEGS. FINGERTIPS AND TOES ARE DARK. PENIS TIP IS DARK. SCROTAL SWELLING.ALL PULSES PALPABLE. NOTED CHANGE IN TEMPERATURE IMPROVEMENT IN BOTH ARMS. ANKLE TO TOES REMAIN COLD. REPOSITIONED TO RIGHT SIDE WITH 2 PILLOWS. SINUS TACHYCARDIA WITHOUT ECTOPY. LOW URINE OUTPUT. DIALYSIS DONE TODAY. PARTH LEFT NECK AREA. PLATELETS IMPROVING. OFF VASOPRESSORS. PLAN FOR CPAP TRIAL TOMORROW.
[2019-09-03] MEDS: TPN PER PHARMACY IV NR ×8 (20:03)
--- NOTE | 2019-09-03 22:00 | NUR ---
REPOSITIONED TO BACK. ARMS UP ON PILLOWS. ORAL CARE DONE. RUST THIN LIQUID SUCTIONED FROM THE ETT. ABDOMEN IS SOFTER. NO BM YET. LOW URINE OUTPUT PERSISTS. PATIENT IS MORE AWAKE BUT UNABLE TO FOLLOW COMMANDS. SHANT. RIGHT WRIST AREA IS DEVELOPING SEVERAL BLISTERS. SINUS TACHYCARDIA 110-113. NO ECTOPY. PARTH LEFT NECK AREA WITH CLEAN DRY DRESSING. CENTRAL LINE RIJ WITH CLEAN DRY DRESSING.
[2019-09-03] MEDS: MEROPENEM 500MG IVPB 50 ML IV SCH (22:14)
[2019-09-04] VITALS (107 sets, daily range): BP systolic 91–181; BP diastolic 60–124
[2019-09-04] MEDS ORDERED: DEXTROSE (50%) 50ML SYRG IV SCH
--- NOTE | 2019-09-04 | NUR ---
VERY AWAKE, GRIMACING, MOVING ARMS, LOOKS VERY UNCOMFORTABLE. INCREASED THE FENTANYL. ORAL CARE DONE. SUCTIONED THE ETT FOR SMALL CLOTS. ABDOMEN LARGE, ROUND, AND MODERATELY FIRM. PASSED FLATUS. SINUS TACHYCARDIA. TEMP 100.2 RECTAL. ALL PULSES PALPABLE. BILATERAL FINGER COOLNESS. BILATERAL FEET COLD. LUNGS CLEAR. LOW URINE OUTPUT. NO NGT OUTPUT. I KEEP FLUSHING Q 2 HOURS AND NO OUTPUT.
[2019-09-04] MEDS: ALBUTEROL SULF 2.5 MG/0.5ML(0.5%) NEB SOLN NEB SCH ×4 (00:11→18:49)
--- NOTE | 2019-09-04 02:00 | NUR ---
DECREASING FENTANYL. SINUS TACHYCARDIA 110. RR 15-20. O2 SAT IMPROVING TO 96%. IV SHOWS NO REDNESS OR SWELLING.
[2019-09-04] MEDS: IPRATROPIUM BROM 0.5 MG/2.5ML INH SOL NEB SCH ×4 (02:10→18:49)
--- NOTE | 2019-09-04 03:12 | NUR ---
AM LAB DRAW
--- NOTE | 2019-09-04 04:01 | NUR ---
WEANING DOWN THE FENTANYL. HE DOES WAKE UP FREQUENTLY , MOVE HIS ARMS A LITTLE AND THEN GOES BACK TO SLEEP. EXPLAINED THE WEANING PROCEDURE TO THE SON, OUR GOALS AND WHAT WE ARE WATCHING FOR. ORAL CARE. REPOSITIONED. LOW URINE OUTPUT. NO WHITE CHUNKS IN HIS MENSAH TONIGHT. THE URINE IS A STRAW COLOR , IS HAZY WITH SEDIMENT. 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 RIGHT HAND: ONLY THE DISTAL FINGERS ARE COOL. BOTH ANKLE TO TOES ARE STILL COLD. STILL NOT FOLLOWING COMMANDS. RIGHT WRIST BLISTERS ARE POPPING AND DRAINING SEROUS FLUID. NOT MUCH BLOOD FROM THE END OF HIS PENIS TONIGHT. SCROTUM REMAINS ENLARGED AND POSTERIORLY DARKENED. SINUS TACHYCARDIA UP TO 117 WHEN AWAKE, LOWEST 109 WHEN ASLEEP. FAN ON. ICE BEHIND HIS HEAD.
[2019-09-04 04:27] LABS: Basophils # (auto) 0 uL; Basophils % (auto) 0.1 % (0.0-2.0); Eosinophils # (auto) 0 uL; Hemoglobin 7.8 g/dL (13.5-17.5); Lymphocytes # (auto) 0.7 uL; Monocytes # (auto) 0.4 uL; Neutrophils # (auto) 9.2 uL
[2019-09-04 04:30] LABS: Eosinophils % (auto) 0.1 % (0.0-7.0); Hematocrit 24.1 % (41.0-53.0); Lymphocytes % (auto) 6.4 % (10.0-50.0); Mean Corpuscular Hemoglobin 24.3 pg (28.0-32.0); Mean Corpuscular Hgb Conc. 32.4 g/dL (32.0-36.0); Mean Corpuscular Volume 74.9 fL (80.0-100.0); Monocytes % (auto) 3.5 % (0.0-12.0); Neutrophils % (auto) 89.9 % (37.0-80.0); Nucleated Red Blood Cells % 0.5 %; Platelet Count (auto) 95 10^3/uL (140-450); Red Blood Cells 3.22 10^6/uL (4.5-5.90); Red Cell Distribution Width 18.2 % (11.8-14.3); White Blood Cell 10.2 10^3/uL (4.4-10.8)
[2019-09-04 04:55] LABS: Potassium 3.8 mmol/L (3.5-5.1)
[2019-09-04 05:07] LABS: BUN/Creatinine Ratio 11.4; Calcium 9.9 mg/dL (8.5-10.1); Total Protein 5.6 g/dL (6.4-8.2)
[2019-09-04 05:25] LABS: Magnesium 1.9 mg/dL (1.6-2.6); Phosphorus 5.6 mg/dL (2.5-4.90)
[2019-09-04] MEDS: HYDROCORTISONE SOD SUCC 100 MG/2ML INJ VIAL IV SCH ×3 (06:00→22:08)
[2019-09-04] MEDS: InsuLIN REG 1unit/0.01ml Soln (100units/ml) SC SCH ×4 (06:00→18:13)
[2019-09-04] MEDS: ACCU-CHEK COMFORT CURVE STRIP VI SCH ×4 (06:00→18:13)
[2019-09-04] MEDS: METOCLOPRAMIDE HCL 5MG/ml INJ 2ml VIAL IV SCH ×3 (06:00→22:08)
--- NOTE | 2019-09-04 06:37 | NUR ---
NO NEW FINDINGS
[2019-09-04] MEDS: fentaNYL Drip 2500mCg/250mlNS 250 ML IV SCH ×2 (07:00→09:29)
--- NOTE | 2019-09-04 07:15 | NUR ---
Respiratory note: PT SEDATION VACATION. PT BECAME ANXIOUS, TACHYCARDIC 130'S AND TACHYPNEIC. PT HAD INCREASED WORK OF BREATHING. RN INFORMED AND PT WAS PLACED BACK ON SEDATION.
--- NOTE | 2019-09-04 08:00 | NUR ---
OPENING NOTE RECEIVED REPORT FROM PROGRAMS DIRECTOR RN. VITAL SIGNS STABLE, NO S/S OF DISTRESS NOTED. PT ON SPECIALTY MATTRESS, LOCKED IN LOWEST POSITION. MENSAH CATHETER DRAINING TO GRAVITY WITH NO KINKS. ALL GTTS NOTED IN IV SPREADSHEET. WILL CONTINUE TO MONITOR AND ASSESS.
--- NOTE | 2019-09-04 08:05 | NUR ---
NG TUBE ASSESSMENT NG TUBE IN PLACE TO THE RIGHT NARE. POSITIVE PLACEMENT VIA AUSCULTATION AND XRAY. RESIDUAL AT 100 ML. CONNECTED TO LCS. WILL CONTINUE TO MONITOR OUTPUT AND PT RESPONSE.
--- NOTE | 2019-09-04 09:30 | NUR ---
AT BEDSIDE DR. FAJARDO AT BEDSIDE TO ASSESS PT AND UPDATE PLAN OF CARE. NEW ORDERS RECEIVED, NOTED IN CHART.
[2019-09-04] MEDS ORDERED: BUMETANIDE 2.5mg/10ml (0.25 mg/ml) INJ IV ONE (09:45)
[2019-09-04] MEDS: PANTOPRAZOLE 40 MG/10 ML VIAL INJ IV SCH (10:26)
[2019-09-04] MEDS: ALBUMIN 25% 50 ML IV SCH ×2 (10:29→18:42)
[2019-09-04] MEDS: MEROPENEM 500MG IVPB 50 ML IV SCH ×2 (10:29→22:08)
[2019-09-04 11:03] LABS: Free T3 1.81 pg/mL (2.3-4.2); Free T4 (Free Thyroxine) 0.7 ng/dL (0.89-1.76)
--- NOTE | 2019-09-04 11:08 | NUR ---
NUTRITION FOLLOW UP NOTES + Consult Pt wt is 132.00 kg today. Pt was intubated and sedated, with relative at bedside when rounded this morning. Will continue to monitor pertinent labs and reassess nutrient needs prn Pt is currently NPO, on TPN of 1047 ml @ 44 ml/hr, providing 44%-57% of energy needs, 44%-52% of protein needs, and 850 NPCs. Estimated Needs: 9147-4131 kcal (14-18 kcal/kgBW), 97 to 113 gms protein (1.2-1.4 gms/kg Adjusted BW). Labs (09/04): BUN 65 H, Cr 5.70 H, Serum glucose 146 H, POC 141 H, P 5.6 H, AST 373 H, ALT 393 H, Alkaline phosphatase 218 H, TP 5.6 L, Albumin 2.0 L. (09/03): Prealbumin 14 L GI: Last BM noted on 09/03/19 per loan documentation specialist. BS: 14, mod risk, pressure ulcer to R outer ear. Please see wound assessment report for full details. PES: 1) Altered nutrition related lab values R/T current acute/chronic medical condition AEB hypoprotinemia, hyperglycemia, hypertriglyceridemia. 2) Obese, Class III R/T excessive energy intake prior to admission AEB %IBW 218 and BMI 50. 3) Inadequate energy intake R/T 0% PO intake and increased energy needs AEB pt under sedation, intubation and NPO status. Comments Will continue to monitor PO intake, pertinent labs, skin status and weight trends. F/u in 2 to 3 days. Additional Recommendations: 1) Continue to carefully monitor pt PN status. 2) Gradually advance pt, when medically feasible, to EN support of Jevity 1.2 @ 73 ml/hr goal rate or advance to oral Cardiac diet. 3) If albumin continues trending down with improved RFTs, consider Prostat 1 pkt BID 4) Refer pt to RD for nutrition/wt management education upon D/C 5) Continue current plan of care
--- NOTE | 2019-09-04 12:00 | NUR ---
[address] VENDOR [address] VENDOR PAGED PER FAMILY REQUEST. SON WOULD LIKE TO KNOW HOW TO CONTINUE WITH DISABILITY PAPERWORK.
--- NOTE | 2019-09-04 12:00 | NUR ---
Arterial Line Dressing Changes Arterial line dressing change done with a sterile technique. Cleansed with chloraprep scrub. Bio-patch as available. Occlusive dressing applied.
--- NOTE | 2019-09-04 12:00 | NUR ---
AT BEDSIDE DR. REYNOLDS AT BEDSIDE TO ASSESS PT AND UPDATE FAMILY ON PLAN OF CARE.
--- NOTE | 2019-09-04 12:00 | NUR ---
WOUND CARE NOTE: BEDSIDE NURSE PHOTOGRAPHED PATIENT'S MULTIPLE PURPLE RED ECCHYMOSIS AREAS ON A VARIETY OF PATIENT'S BODY. SKIN IS STARTING TO BLISTER, AND OPEN. PATIENT RECEIVING HONEY AND OPTIFOAM GENTLE DRESSING EOD/PRN ON OPEN WOUNDS, CONTINUED MONITORING BY WOUND CARE TEAM. NEW PHOTOS PLACED IN CHART FOR REFERENCE. DR. REYNOLDS AWARE OF PATIENT'S SKIN INTEGRITY ISSUES.
[2019-09-04] MEDS ORDERED: Jevity 1.2 Cal/Fiber 1 Liter GT SCH (12:45)
[2019-09-04] MEDS: NOREPINEPHRINE 8 MG/250ML KIT 250 ML IV SCH (14:06)
--- NOTE | 2019-09-04 14:15 | NUR ---
[employer] CALLBACK ALEXANDRE FROM [employer] CALLED BACK AND STATED THE HOSPITAL DOES NOT DO THE PAPERWORK FOR DISABILITY. THE FAMILY WOULD HAVE TO OBTAIN PAPERWORK AND FILE IT THROUGH THE OUTSIDE PCP.
--- NOTE | 2019-09-04 14:35 | NUR ---
AT BEDSIDE DR. EISENBERG AT BEDSIDE TO ASSESS PT AND UPDATE PLAN OF CARE. NEW ORDERS RECEIVED TO CPAP IN THE MORNING WITH PRECEDEX AFTER DIALYSIS.
[2019-09-04] MEDS: MIDAZOLAM DRIP 50 mg/50mL 50 ML IV SCH (14:54)
--- NOTE | 2019-09-04 15:00 | NUR ---
TUBE FEEDINGS HELD PATIENT CONTINUES TO HAVE GASTRIC OUTPUT VIA NG. TF HELD AT THIS TIME. TPN REMAINS IN PLACE. PATIENT HAVING HYPOACTIVE BOWELS SOUNDS WITH SMEAR NOTED IN A.M.
--- NOTE | 2019-09-04 16:05 | NUR ---
PAGED DR. REYNOLDS PAGED TO NOTIFY OF PATIENTS POSSIBLE CPAP IN A.M POST DIALYSIS WITH PRECEDEX. VERIFIED WITH MD IF SHE WOULD LIKE UROLOGY RECONSULTED OR UPDATED TO DETERMINE PLAN OF CARE BEFORE POSSIBLE EXTUBATION. MD VERBALIZED UNDERSTANDING AND WILL BE COMMUNICATING WITH UROLOGY. SEE FURTHER ORDERS/ NOTES.
--- NOTE | 2019-09-04 16:28 | NUR ---
assessment Patient is a 59 year old male who is on a vent. Per patients kamorn Palacio prior to admission patient lived home with family and was independent. 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 Patients PCP is Jhoana Marinelli. Per Hakeem patient was not feeling well he had fever and chills and family took him to ER and he was admitted. I informed Hakeem we will do discharge planning after extubation and prior to discharge. Hakeem verbalized understanding. Addendum: 09/04/19 at 1633 by Cristin RODRIUGEZ Amended: Links added.
[2019-09-04] MEDS: VASOPRESSIN 50 UNITS in D5W 5% 247.5 ML IV SCH (17:00)
[2019-09-04] MEDS: TPN PER PHARMACY IV NR ×15 (19:48→19:54)
--- NOTE | 2019-09-04 20:00 | NUR ---
OBTAINED INFORMATION ON HOW TO GET DISABILITY FORMS AND PASSED IT TO THE . ADMITTED WITH AN MD DIAGNOSIS OF UROSEPSIS AND NSTEMI. HAS BEEN OFF OF VASOPRESSORS OVER 24 HOURS. SBP FOR A PERIOD OF TIME TODAY WAS HYPERTENSIVE. HR HAS BEEN 100-105. NO ECTOPY. RAY ARTERIAL LINE IS ALMOST EQUAL TO THE CUFF. RIJ TLC WITH FENTANYL AND TPN GOING. IV SITE SHOWS NO REDNESS, DRNG OR SWELLING. LUNGS CLEAR. ORAL CARE DONE. SORES ON UPPER AND LOWER LIPS. MOISTURIZER ON LIPS. ABDOMEN IS ROUND, LARGE AND MODERATELY FIRM. NO FLATUS SO FAR. NO BM. MENSAH IN PLACE WITH A MINIMAL AMOUNT OF STRAW COLOR URINE WITH HAZY SEDIMENT. GENERALIZED PITTING EDEMA. RECEIVING 3 DOSES OF ALBUMIN TODAY. ALL PULSES PALPABLE. DISTAL FINGERS COOL. BOTH ANKLES TO TOES ARE COLD. THERE IS A NEW AREA AT THE TOP OF THE ANKLE THAT IS NOW WARM. MOTTLING OF FOREARMS, GROIN, AND BOTH LEGS. MULTIPLE AREAS OF ECCHYMOTIC SPOTS ON ABDOMEN. TIP OF PENIS IS PURPLE. SCROTUM IS ENLARGED. RIGHT WRIST, LEFT ANKLE , AND RIGHT LOWER LEG HAS SKIN TEARS. FOAM DRESSING COVERING THOSE THAT HAVE BURST.
--- NOTE | 2019-09-04 22:00 | NUR ---
REPOSITIONED TO LEFT SIDE. SOME RESISTANCE. OPENS EYES, MOVES ARMS AND LEGS. FAMILY IN ROOM.
[2019-09-04] MEDS: MIDAZOLAM HCL 1MG/1ML-2 ML VIAL IV PRN ×2 (22:46→22:49)
[2019-09-05] VITALS (113 sets, daily range): BP systolic 83–170; BP diastolic 49–93
--- NOTE | 2019-09-05 | NUR ---
REPOSITIONED TO HIS BACK. ORAL CARE DONE. MOISTURIZER TO HIS LIPS. LUNGS CLEAR. ABDOMEN MODERATELY FIRM, LARGE, AND ROUND. NO BM. LOW URINE OUTPUT. URINE IS STILL HAZY. NO BIG CHUNKS OR HEMATURIA LIKE BEFORE. BLOOD IS STILL OOZING AT TIP OF PENIS. NO NEW IMPROVEMENT IN THE COLD AREAS OF HIS EXTREMITIES. SINUS TACHYCARDIA 113. NO ECTOPY. IV SHOWS NO REDNESS OR SWELLING. FINGERTIPS PURPLE.
[2019-09-05] MEDS: ACCU-CHEK COMFORT CURVE STRIP VI SCH ×4 (00:05→18:09)
[2019-09-05] MEDS: InsuLIN REG 1unit/0.01ml Soln (100units/ml) SC SCH ×5 (00:06→18:09)
[2019-09-05] MEDS: ALBUTEROL SULF 2.5 MG/0.5ML(0.5%) NEB SOLN NEB SCH ×4 (00:38→18:28)
[2019-09-05] MEDS: IPRATROPIUM BROM 0.5 MG/2.5ML INH SOL NEB SCH ×4 (00:38→18:28)
--- NOTE | 2019-09-05 00:52 | NUR ---
A FEW BLISTERS BROKE ON FOOT. ALL THE DRESSINGS CHANGED. CLEANED SITES WITH WOUND ROUTER TENDER AND REDRESSED WITH FOAM DRESSINGS. ALL HAVE DRAINED SEROUS DRNG. WARMTH IN THE ARMS AND LEGS IS RECOVERING MORE EVERY DAY. TOES ARE STILL COOL. THE DARKNESS REMAINS. SOME AREAS HAVE TURNED RED. TIP OF PENIS STILL DRAINS A TINY AMOUNT OF BLOOD . PENIS CLEANED. PLACED ON NEW SHEETS. NO FEVER. HEART RATE COMING DOWN AROUND 100. HAS BEEN SLEEPING MORE. SINUS TACHYCARDIA. SBP STABLE. ARTERIAL LINE IS NEAR THE CUFF PRESSURE. CVP IS USUALLY AROUND 8. CRUSTINESS OVER LIPS IS GETTING BETTER WITH EACH CLEANING. GENERALIZED PITTING EDEMA, NO CHANGE.
--- NOTE | 2019-09-05 02:00 | NUR ---
VSS. QUIET ON HIGHER DOSES OF FENTANYL. LESS DRNG FROM THE END OF HIS PENIS. REMAINS BLOODY. ALL PULSES ARE PALPABLE. SINUS TACHY 107. NO FEVERS TONIGHT. FAN ON HIM. NO ICE PACKS. GENERALIZED PITTING EDEMA PERSISTS. OVER BREATHS VENTILATOR. ARTERIAL LINE IS LESS THAN CUFF BP. LOW URINE OUTPUT. JUST SAW CHUNKS OF WHITE COTTON LOOKING SEDIMENT COMING DOWN THE MENSAH TUBING.
[2019-09-05] MEDS: ALBUMIN 25% 50 ML IV SCH (02:14)
--- NOTE | 2019-09-05 03:17 | NUR ---
AM LABS DRAWN
--- NOTE | 2019-09-05 03:22 | NUR ---
CHG BATH DONE. PARTIAL LINEN CHANGE
[2019-09-05 04:01] LABS: Albumin 2.2 g/dL (3.4-5.0); Calcium 9.9 mg/dL (8.5-10.1); Magnesium 2.1 mg/dL (1.6-2.6)
[2019-09-05 04:03] LABS: % Iron Saturation 9.2 % (20-55)
[2019-09-05 04:05] LABS: BUN/Creatinine Ratio 12.1; Phosphorus 6.2 mg/dL (2.5-4.90); Total Protein 5.6 g/dL (6.4-8.2)
--- NOTE | 2019-09-05 04:15 | NUR ---
AWAKE. COMPLAINS OF LOWER BACK PAIN. TYLENOL GIVEN. SINUS TACHYCARDIA. TRYING HIM FLAT FOR A FEW MINUTES.
[2019-09-05 04:16] LABS: Mean Corpuscular Hemoglobin 23.7 pg (28.0-32.0); White Blood Cell 13.7 10^3/uL (4.4-10.8)
[2019-09-05 04:18] LABS: Hematocrit 21.5 % (41.0-53.0); Mean Corpuscular Hgb Conc. 31.5 g/dL (32.0-36.0); Mean Corpuscular Volume 75.3 fL (80.0-100.0); Platelet Count (auto) 167 10^3/uL (140-450); Red Blood Cells 2.85 10^6/uL (4.5-5.90); Red Cell Distribution Width 18.2 % (11.8-14.3)
[2019-09-05 04:20] LABS: Hemoglobin 6.8 g/dL (13.5-17.5)
[2019-09-05 04:21] LABS: Basophils % (manual) 0 (0.0-2.0); Blast Cells 0; Eosinophils % (manual) 0 (0-7); Myelocytes % 0; Promyelocytes % 0; Reactive Lymphocytes 0
--- NOTE | 2019-09-05 04:55 | NUR ---
INFORMED LUCINA ESCOBAR, SUPERVISOR FISHING: HG 6.8. ORDER TO REPEAT LAB IN 2 HOURS
--- NOTE | 2019-09-05 06:00 | NUR ---
OCCASIONALLY RESTLESS. PREFERS LYING ON HIS RIGHT SIDE. THERE IS IMPROVEMENT IN THE LEVEL OF NEW CIRCULATION WARMTH IN THE ANKLES WELL THE HANDS.
[2019-09-05] MEDS: METOCLOPRAMIDE HCL 5MG/ml INJ 2ml VIAL IV SCH ×3 (06:13→21:52)
[2019-09-05] MEDS: HYDROCORTISONE SOD SUCC 100 MG/2ML INJ VIAL IV SCH ×3 (06:13→21:52)
[2019-09-05] MEDS: MIDAZOLAM HCL 1MG/1ML-2 ML VIAL IV PRN ×3 (06:14→20:14)
[2019-09-05] MEDS: LEVOTHYROXINE SODIUM 50 MCG TAB PO SCH (06:24)
[2019-09-05] MEDS ORDERED: SODIUM CHL 0.9% 1000 ML BAG XX ONE (07:00)
[2019-09-05 07:11] LABS: White Blood Cell 13.1 10^3/uL (4.4-10.8)
[2019-09-05 07:14] LABS: Hematocrit 21.9 % (41.0-53.0); Mean Corpuscular Hemoglobin 24.1 pg (28.0-32.0); Mean Corpuscular Hgb Conc. 31.9 g/dL (32.0-36.0); Mean Corpuscular Volume 75.4 fL (80.0-100.0); Platelet Count (auto) 179 10^3/uL (140-450); Red Cell Distribution Width 18.2 % (11.8-14.3)
[2019-09-05 07:44] LABS: Basophils % (manual) 0 (0.0-2.0); Blast Cells 0; Eosinophils % (manual) 0 (0-7); Myelocytes % 0; Promyelocytes % 0; Reactive Lymphocytes 0
--- NOTE | 2019-09-05 07:45 | NUR ---
OPENING NOTE RECEIVED REPORT FROM ASSISTANT PRODUCE MANAGER RN. ASSUMED CARE OF PT. PT AWAKE WITH EYES OPEN IN BED. INTUBATED AND SEDATED ON FENTANYL AT 200 MCG/MIN. MENSAH CATHETER IN PLACE, DRAINING TO GRAVITY. PT ON SPECIALTY MATTRESS. NO S/S OF DISTRESS NOTED. VITAL SIGNS STABLE. WILL CONTINUE TO MONITOR AND ASSESS.
[2019-09-05 08:39] LABS: Band Neutrophils % (manual) 11; Lymphocytes % (manual) 2 (10.0-50.0); Metamyelocytes % 2; Monocytes % (manual) 7 (0-12)
[2019-09-05 08:44] LABS: Band Neutrophils % (manual) 6; Lymphocytes % (manual) 6 (10.0-50.0); Metamyelocytes % 1; Monocytes % (manual) 2 (0-12)
[2019-09-05] MEDS: DexMEDEtomidine 400 MCG in D5W 5% 96 ML IV SCH (09:00)
--- NOTE | 2019-09-05 09:20 | NUR ---
DR. REYNOLDS CALLED UNIT TO GET UPDATE ON PT. UPDATED MD ON PT CONDITION AND DIALYSIS TODAY, HGB OF 7.0, INCREASED GASTRIC OUTPUT, AND PT INDICATING PAIN IN LOWER BACK. NEW ORDERS RECEIVED, NOTED IN CHART.
--- NOTE | 2019-09-05 11:00 | NUR ---
DIALYSIS AT BEDSIDE TO BEGIN TREATMENT.
--- NOTE | 2019-09-05 11:10 | NUR ---
AT BEDSIDE DR. REYNOLDS AT BEDSIDE TO ASSESS PT AND UPDATE PLAN OF CARE. SON, DEANNA, AT BEDSIDE. ALL QUESTIONS AND CONCERNS ADDRESSED. NO NEW ORDERS RECEIVED.
--- NOTE | 2019-09-05 12:08 | NUR ---
BLOOD- 15 MINUTE CHECK VITAL SIGNS STABLE AND NOTED IN TRANSFUSION TAB. NO S/S OF TRANSFUSION REACTION NOTED.
--- NOTE | 2019-09-05 12:08 | NUR ---
BLOOD TRANSFUSION OF 1 UNIT PRBCS WITH DIALYSIS. VITAL SIGNS STABLE AND DOCUMENTED IN TRANSFUSION TAB. WILL MONITOR FOR S/S OF TRANSFUSION REACTION.
--- NOTE | 2019-09-05 12:38 | NUR ---
BLOOD- 30 MINUTE CHECK VITAL SIGNS STABLE AND DOCUMENTED. NO S/S OF TRANSFUSION REACTION OBSERVED.
--- NOTE | 2019-09-05 12:55 | NUR ---
BLOOD END BLOOD TRANSFUSION WITH DIALYSIS COMPLETED. VITAL SIGNS STABLE AND NOTED IN CHART. NO S/S OF TRANSFUSION REACTION NOTED. Addendum: 09/05/19 at 1329 by ROGERS ARMAS RN RN WILL MONITOR FOR DELAYED TRANSFUSION REACTION.
--- NOTE | 2019-09-05 13:15 | NUR ---
PRESSORS STARTED PT RECEIVED ONE UNIT OF PRBCS DURING DIALYSIS. ARTERIAL LINE PRESSURES BEGAN TO READ IN THE 80'S SYSTOLIC AND MAINTAINED. INITIATED LEVOPHED AT 4 MCG/MIN NOTED IN CHART.
[2019-09-05] MEDS: NOREPINEPHRINE 8 MG/250ML KIT 250 ML IV SCH (13:16)
[2019-09-05] MEDS: PANTOPRAZOLE 40 MG/10 ML VIAL INJ IV SCH (14:39)
[2019-09-05] MEDS: MEROPENEM 500MG IVPB 50 ML IV SCH ×2 (14:40→22:00)
[2019-09-05] MEDS: levoFLOXacin 750MG 150 ML IV SCH (14:40)
[2019-09-05] MEDS: MIDAZOLAM DRIP 50 mg/50mL 50 ML IV SCH (14:54)
[2019-09-05] MEDS: MORPHINE SULF INJ 2 MG/ML SYRINGE 1ML IV PRN ×2 (14:57→20:13)
--- NOTE | 2019-09-05 15:15 | NUR ---
FENTANYL TURNED OFF PER MD ORDER. PT TOLERATING WELL, VITAL SIGNS STABLE. WILL CONTINUE TO MONITOR.
--- NOTE | 2019-09-05 15:45 | NUR ---
FENT TURNED BACK ON AT 150MCG/MIN FOR RESTLESSNESS AND AGITATION, PT PULLING AT ET TUBE AND BITING TUBE. VITAL SIGNS INCREASING, HR 122, BP 146/80, TEMP 100.0 F, RR 19. APPLIED MITTENS. WILL CONTINUE TO MONITOR PT.
--- NOTE | 2019-09-05 16:00 | NUR ---
COOLING MEASURES INITIATED FOR TEMP OF 100.0. ICE PACKS APPLIED, FAN ON PT. WILL CONTINUE TO MONITOR
[2019-09-05] MEDS: VASOPRESSIN 50 UNITS in D5W 5% 247.5 ML IV SCH (17:00)
[2019-09-05] MEDS: fentaNYL Drip 2500mCg/250mlNS 250 ML IV SCH ×2 (17:56→19:57)
--- NOTE | 2019-09-05 18:00 | NUR ---
PULMONOLOGY VISITS/PROPOFOL STARTED DR EISENBERG VISITS, UPDATED ON PATIENT'S STATUS DURING SEDATION VACATION AND VERY AGITATED. ORDERS TO START PROPOFOL RECEIVED AND CARRIED OUT.
[2019-09-05] MEDS ORDERED: PROPOFOL 100 ML IV ONE (18:02)
--- NOTE | 2019-09-05 18:45 | NUR ---
NON ADMIN INSULIN NO INSULIN ON ICU UNIT. CALLED PHARMACY X2 AND MADE THEM AWARE. ENDORSED TO PHOTO CARTOGRAPHER RN.
[2019-09-05] MEDS: PROPOFOL 100 ML IV SCH (18:55)
[2019-09-05] MEDS: TPN PER PHARMACY IV NR ×14 (18:55→19:49)
--- NOTE | 2019-09-05 20:00 | NUR ---
ADMITTED WITH HEMATURIA, UTI SEPSIS, CIELO, THROMBOCYTOPENIA, COAGULAPATHY, LARGE BLADDER STONE, AND ARF. INTUBATED IN ER. HAS A LEFT UPPER ARM ARTERIAL LINE , RIGHT INTERNAL JUGULAR CENTRAL LINE, AND A MENSAH CATHETER. ORALLY INTUBATED. ETT TO VENTILATOR. LUNGS CLEAR. ORAL CARE DONE. SOME OF THE SCABS ON THE UPPER AND LOWER LIP ARE SLOWLY COMING OFF. MOISTURIZER APPLIED TO LIPS. ABDOMEN REMAINS LARGE, ROUND AND MODERATELY FIRM. HAS MULTIPLE ECCHYMOTIC AREAS ON ABDOMINAL WALL. 2-3+ PITTING EDEMA. MENSAH IS A SIZE 18. WE HAVE ALWAYS HAD A SMALL AMOUNT OF BLOOD THAT OOZES FROM THE TIP OF HIS PENIS. AREA CLEANED WITH CHG WIPE. SHAFT OF PENIS IS FIRM AND SWOLLEN. SCROTUM IS LARGE. MOTTLING AND ECCHYMOSIS INCREASES IT TRAVELS DOWN BOTH LEGS. LEFT AND RIGHT FOREARM MIDWAY TO FINGERS IS DARKENED, IMPROVING IN WARMTH, AND FINGERTIPS ARE DARK. ALL PULSES ARE PALPABLE. BOTH FEET HAVE VARYING DEGREES OF PURPLE AND REDNESS. THE BOTTOM OF BOTH FEET ARE DARK PURPLE. TOES ARE COOL. RECTAL TEMP PROBE IS IN. SINUS TACHYCARDIA 100-110. NO FEVER. LOW URINE OUTPUT. URINE IS YELLOW WITH SEDIMENT.
[2019-09-05] MEDS ORDERED: EPOETIN ALFA 10,000 UNIT/1 ML VIAL SC ONE (21:00)
[2019-09-06] VITALS (112 sets, daily range): BP systolic 71–300; BP diastolic 38–144
--- NOTE | 2019-09-06 | NUR ---
VSS. RANGE OF MOTION DONE. SINUS TACHYCARDIA. NO NEW CHANGES.
[2019-09-06] MEDS: IPRATROPIUM BROM 0.5 MG/2.5ML INH SOL NEB SCH ×4 (00:17→18:34)
[2019-09-06] MEDS: ALBUTEROL SULF 2.5 MG/0.5ML(0.5%) NEB SOLN NEB SCH ×4 (00:17→18:34)
[2019-09-06] MEDS: MORPHINE SULF INJ 2 MG/ML SYRINGE 1ML IV PRN ×2 (01:12→06:38)
[2019-09-06] MEDS: MIDAZOLAM HCL 1MG/1ML-2 ML VIAL IV PRN (01:18)
--- NOTE | 2019-09-06 01:24 | NUR ---
PATIENT WAS VERY RESTLESS. MORPHINE GIVEN. HE CONTINUED TO GRIMACE AND TRY TO MOVE HIS UPPER EXTREMITIES. VERSED GIVEN. HE IS NOW ASLEEP. NO GRIMACING
--- NOTE | 2019-09-06 03:00 | NUR ---
AM LABS DRAWN
--- NOTE | 2019-09-06 04:00 | NUR ---
VSS. HAS BEEN RESTING. WHEN HE WAKES UP , HE IS RESTLESS. ST WITHOUT ECTOPY. NO CHANGE IN NEURO STATUS. NGT IS PUTTING OUT A LARGE AMOUNT OF BROWN LIQUID WITH CLUMPS. MENSAH OUTPUT IS LOW.
[2019-09-06 04:12] LABS: Basophils # (auto) 0 uL; Basophils % (auto) 0.1 % (0.0-2.0); Eosinophils # (auto) 0 uL; Eosinophils % (auto) 0.1 % (0.0-7.0); Hematocrit 23.5 % (41.0-53.0); Hemoglobin 7.5 g/dL (13.5-17.5); Lymphocytes # (auto) 0.4 uL; Lymphocytes % (auto) 3.3 % (10.0-50.0); Mean Corpuscular Hemoglobin 24.6 pg (28.0-32.0); Mean Corpuscular Hgb Conc. 31.9 g/dL (32.0-36.0); Mean Corpuscular Volume 77.1 fL (80.0-100.0); Monocytes # (auto) 0.7 uL; Monocytes % (auto) 5.9 % (0.0-12.0); Neutrophils # (auto) 10.1 uL; Neutrophils % (auto) 90.6 % (37.0-80.0); Nucleated Red Blood Cells % 0.1 %; Platelet Count (auto) 262 10^3/uL (140-450); Red Blood Cells 3.05 10^6/uL (4.5-5.90); Red Cell Distribution Width 18.7 % (11.8-14.3); White Blood Cell 11.1 10^3/uL (4.4-10.8)
[2019-09-06 04:32] LABS: Potassium 4.2 mmol/L (3.5-5.1)
[2019-09-06 04:36] LABS: BUN/Creatinine Ratio 12.4; Bilirubin, Total 0.9 mg/dL (0.2-1.0); Phosphorus 5.8 mg/dL (2.5-4.90); Total Protein 5.5 g/dL (6.4-8.2)
--- NOTE | 2019-09-06 05:00 | NUR ---
CHG BATH AND LINEN CHANGE. WOUND CARE SPRAY TO CLEAN TIP OF PENIS.
[2019-09-06] MEDS: HYDROCORTISONE SOD SUCC 100 MG/2ML INJ VIAL IV SCH ×3 (05:31→22:25)
[2019-09-06] MEDS: METOCLOPRAMIDE HCL 5MG/ml INJ 2ml VIAL IV SCH ×3 (05:31→22:25)
[2019-09-06] MEDS: ACCU-CHEK COMFORT CURVE STRIP VI SCH ×4 (05:31→17:57)
[2019-09-06] MEDS: InsuLIN REG 1unit/0.01ml Soln (100units/ml) SC SCH ×4 (05:42→17:57)
[2019-09-06] MEDS: LEVOTHYROXINE SODIUM 50 MCG TAB PO SCH (06:18)
[2019-09-06] MEDS: fentaNYL Drip 2500mCg/250mlNS 250 ML IV SCH ×2 (06:41→18:58)
--- NOTE | 2019-09-06 07:50 | NUR ---
OPENING Report received from Lawanda GIFFORD. Care initiated and initial assessment completed.
[2019-09-06] MEDS: DexMEDEtomidine 400 MCG in D5W 5% 96 ML IV SCH ×2 (08:12→15:20)
[2019-09-06] MEDS: PANTOPRAZOLE 40 MG/10 ML VIAL INJ IV SCH (09:54)
[2019-09-06] MEDS: MEROPENEM 500MG IVPB 50 ML IV SCH ×2 (10:22→22:26)
--- NOTE | 2019-09-06 12:10 | NUR ---
BEDSIDE Dr. Day bedside. New orders received and verified.
--- NOTE | 2019-09-06 12:15 | NUR ---
BEDSIDE Dr. Fairbanks bedside assessing patient and speaking with family member.
[2019-09-06] MEDS: NOREPINEPHRINE 8 MG/250ML KIT 250 ML IV SCH (14:06)
[2019-09-06] MEDS: MIDAZOLAM DRIP 50 mg/50mL 50 ML IV SCH (14:54)
[2019-09-06] MEDS: ACYCLOVIR 200 MG/5 ML SUSP PO SCH ×2 (15:05→22:26)
--- NOTE | 2019-09-06 16:00 | NUR ---
FULL LINEN CHANGE Patient placed on new draw sheet and chucks. Patient tolerated turning well.
[2019-09-06] MEDS: VASOPRESSIN 50 UNITS in D5W 5% 247.5 ML IV SCH (17:00)
[2019-09-06] MEDS: PROPOFOL 100 ML IV SCH (18:57)
[2019-09-06] MEDS: TPN PER PHARMACY IV NR ×14 (19:47→19:48)
--- NOTE | 2019-09-06 19:50 | NUR ---
OPENING NOTE: RESTLESS, FIDGETING IN BED. OPENS EYES BUT DOES NOT TRACK NOR FOLLOW COMMANDS AT THIS TIME. SINUS TACHY, HR 100s. JOHNNY PRESSURES 80-90. SBP 80-90s. 8.0 ETT 24 AT THE LIP. EVEN AND UNLABORED BREATHING. MODERATE THICK ORAL SECRETIONS, MINIMAL ETT SECRETIONS. SpO2>95% ON CURRENT VENT SETTINGS. ABD LARGE, ROUND AND SOFT. HYPOACTIVE BS. LBM 2/24 PER REPORT. NGT TO LIS, +AIR BOLUS, LIGHT BROWN OUTPUT. MENSAH PATENT AND INTACT, DRAINING YELLOW URINE WITH MUCOUS. RIGHT IJ TLC, CDI, AND PATENT WITH BLOOD RETURN. LEFT IJ PARTH, DRESSING CDI. SEE SKIN AND WOUND FLOWSHEET FOR ASSESSMENT. REINFORCED POC. MAINTAINED PATIENT SAFETY: BED LOCKED AND IN THE LOWEST POSITION, FREQUENT VISUAL CHECKS. NO FAMILY PRESENT AT THIS TIME. WILL CONT CARE
--- NOTE | 2019-09-06 21:20 | NUR ---
A LINE PRESSURES IN THE 70s - RESTARTED LEVOPHED GTT
--- NOTE | 2019-09-06 21:35 | NUR ---
INCREASED LEVOPHED GTT
--- NOTE | 2019-09-06 21:45 | NUR ---
INCREASED LEVOPHED GTT
[2019-09-06] MEDS: QUEtiapine FUMARATE 25 MG TAB PO SCH (22:25)
--- NOTE | 2019-09-06 22:54 | NUR ---
FAMILY AT BEDSIDE: REINFORCED POC. ANSWERED ALL QUESTIONS ABLE.
[2019-09-07] VITALS (104 sets, daily range): BP systolic 71–144; BP diastolic 42–91
--- NOTE | 2019-09-07 00:03 | NUR ---
TEMP 99.9F RECTALLY - COOLING MEASURES APPLIED: PLACED COOL WASH CLOTH ON FOREHEAD, ICE PACK BEHIND HIS NECK AND IN HIS RIGHT AXILLA. FAN OSCILLATING IN ROOM. WILL CONT CARE
[2019-09-07] MEDS: ALBUTEROL SULF 2.5 MG/0.5ML(0.5%) NEB SOLN NEB SCH ×4 (00:04→18:36)
[2019-09-07] MEDS: IPRATROPIUM BROM 0.5 MG/2.5ML INH SOL NEB SCH ×3 (00:04→11:40)
[2019-09-07] MEDS: PROPOFOL 100 ML IV SCH ×2 (02:27→05:59)
[2019-09-07 04:02] LABS: Hemoglobin 7.8 g/dL (13.5-17.5)
[2019-09-07 04:11] LABS: Hematocrit 24.5 % (41.0-53.0); Mean Corpuscular Hemoglobin 24.3 pg (28.0-32.0); Mean Corpuscular Hgb Conc. 31.7 g/dL (32.0-36.0); Mean Corpuscular Volume 76.8 fL (80.0-100.0); Platelet Count (auto) 373 10^3/uL (140-450); Red Blood Cells 3.19 10^6/uL (4.5-5.90); White Blood Cell 11.4 10^3/uL (4.4-10.8)
[2019-09-07 04:17] LABS: Calcium 9.8 mg/dL (8.5-10.1); Magnesium 2.1 mg/dL (1.6-2.6)
[2019-09-07 04:20] LABS: BUN/Creatinine Ratio 14.3; Phosphorus 6.9 mg/dL (2.5-4.90); Total Protein 5.7 g/dL (6.4-8.2)
[2019-09-07 04:45] LABS: Basophils % (manual) 0 (0.0-2.0); Blast Cells 0; Eosinophils % (manual) 0 (0-7); Metamyelocytes % 0; Myelocytes % 0; Promyelocytes % 0; Reactive Lymphocytes 0
--- NOTE | 2019-09-07 05:00 | NUR ---
BED BATH WITH CHG WIPES, BRENNAN CARE, MENSAH CARE, ORAL CARE, AND FULL LINEN CHANGE
--- NOTE | 2019-09-07 05:00 | NUR ---
WOUND CARE: BILATERAL LOWER EXTREMITIES: NOTED WITH GENERALIZED EDEMA TO BILATERAL LOWER EXTREMITIES WITH ECCHYMOSIS, AND MOTTLING. NUMEROUS BLISTERS OF VARIOUS SIZES, SOME INTACT, SOME POPPED. CLEANSED ALL AREAS WITH WOUND CLEANSER, PAT DRY WITH STERILE GAUZE, APPLIED TELFA TO OPEN AREAS OR POPPED BLISTERS, COVERED WITH ABD PADS, WRAPPED WITH KERLIX, AND SECURED WITH STRETCH NETTING. RIGHT WRIST SKIN TEARS AND BLISTERS: CLEANSED WITH WOUND CLEANSER. PAT DRY WITH STERILE GAUZE. APPLIED TELFA, COVERED WITH ABD PAD, SECURED WIT STRETCH NETTING.
[2019-09-07 05:57] LABS: Band Neutrophils % (manual) 7; Lymphocytes % (manual) 4 (10.0-50.0); Monocytes % (manual) 6 (0-12)
[2019-09-07] MEDS: LEVOTHYROXINE SODIUM 50 MCG TAB PO SCH (05:59)
[2019-09-07] MEDS: fentaNYL Drip 2500mCg/250mlNS 250 ML IV SCH (05:59)
[2019-09-07] MEDS: METOCLOPRAMIDE HCL 5MG/ml INJ 2ml VIAL IV SCH ×3 (05:59→22:11)
[2019-09-07] MEDS: HYDROCORTISONE SOD SUCC 100 MG/2ML INJ VIAL IV SCH (05:59)
[2019-09-07] MEDS: ACYCLOVIR 200 MG/5 ML SUSP PO SCH ×3 (05:59→22:11)
[2019-09-07] MEDS: InsuLIN REG 1unit/0.01ml Soln (100units/ml) SC SCH ×5 (06:09→23:25)
[2019-09-07] MEDS: ACCU-CHEK COMFORT CURVE STRIP VI SCH ×5 (06:09→23:25)
[2019-09-07] MEDS: DexMEDEtomidine 400 MCG in D5W 5% 96 ML IV SCH ×2 (06:12→21:40)
--- NOTE | 2019-09-07 07:30 | NUR ---
REPORT AND CARE ENDORSED TO ИРИНА LOPEZ
--- NOTE | 2019-09-07 07:40 | NUR ---
OPENING Report received from Ada JACINTO RN. Care initiated and initial assessment complete.
[2019-09-07] MEDS: QUEtiapine FUMARATE 25 MG TAB PO SCH ×2 (10:00→22:11)
--- NOTE | 2019-09-07 11:17 | NUR ---
BEDSIDE Dr. Fairbanks bedside assessing patient. made aware of NG output. New orders received. Will complete S/P dialysis.
--- NOTE | 2019-09-07 11:19 | NUR ---
DIALYSIS ONGOING Titrating pressure support as ordered.
--- NOTE | 2019-09-07 11:52 | NUR ---
LATE ENTRY CORRECTION ON TRANSFUSION COMPLETION OF 09/05/19 ENTERED BY THIS NURSE TODAY. THIS NURSE ORIENTED ИРИНА MCCLOUD. - ROGERS DID PLACE NOTE OF END AND TIME.
--- NOTE | 2019-09-07 12:00 | NUR ---
WOUND CARE BEDSIDE
--- NOTE | 2019-09-07 12:05 | NUR ---
DIALYSIS COMPLETE 2L removed. Blood pressure decreased during dialysis. Diprivan and Levophed titrated as ordered.
--- NOTE | 2019-09-07 12:30 | NUR ---
BEDSIDE Dr. Tai bedside. New orders received. MD wants Abdomen and Pelvis CT with oral contrast, made MD aware of high gastric output. MD would still like oral contrast to be given.
--- NOTE | 2019-09-07 12:46 | NUR ---
WOUND CARE NOTE: Wound care in to see patient for reevaluation of multiple skin integrity issue. Patient continue resting on bariatric air bed in ICU Rm. 104. He's intubated, sedated and mechanically ventilated. Patient appears to be in no pain using Dillon Lawrence Faces Pain Scale. His Bora score is 14. Skin wound assessment done with the assistance of patient' s nurse RN Tiana. Patient developed lesions/mucosal ulcers to upper and lower lips. Patient is receiving routine oral care and R.T. is monitoring and on scheduled ET tubing repositioning. Staff keeping patient's lips moistened. Patient has generalized edema with purple ecchymosis and mottled skin to BUE, BLE, abdomen and Rt lateral hip. Patient's Patient's toes and nail bed are dark purple ecchymotic vs necrosis. Patient seen by psychological assistant, Dr. Day. (see MD note). Patient also developed multi serum filled blisters and some are open showing open partial thickness skin tear to RLE and Rt forearm. Cleansed multi open wounds/skin tears with wound cleanser,patted dry with gauze,applied Thera honey gel, covered with abd pad and secured with stockinette. Patient's distal penile shaft continue to display ecchymosis/necrosis; MD aware and urology consult ordered. Sacral and back are also examined, no pressure injury noted. New photograph of wounds are taken for reference. Repositioned patient for comfort facing his Rt. side, redistributed pressure points with pillows. Patient tolerated well. RECOMMENDATION: Continuation of all wound care orders prescribed by MD, avoid tape on skin, keep scabbed ulcers on patient's lips clean and moist, elevate edematous extremities on pillows, continue with skin/wound plan of care, continue monitoring by wound care while patient is hospitalized. Addendum: 09/07/19 at 1525 by Kelly Sadler RN Amended: Links added.
[2019-09-07] MEDS: MIDAZOLAM HCL 1MG/1ML-2 ML VIAL IV PRN (12:48)
--- NOTE | 2019-09-07 13:00 | NUR ---
WOUND CARE COMPLETED Opened blisters dressed with Thera-Honey strips, abd pads, and stockinette.
[2019-09-07] MEDS: MEROPENEM 500MG IVPB 50 ML IV SCH ×2 (13:06→22:12)
[2019-09-07] MEDS: levoFLOXacin 750MG 150 ML IV SCH (13:06)
[2019-09-07] MEDS ORDERED: OMNIPAQUE ORAL SOLN 500ml 12mg/ml PO ONE (13:40)
[2019-09-07] MEDS ORDERED: LACTULOSE 20Gm/30ML SOLN PR ONE (14:00)
--- NOTE | 2019-09-07 14:30 | NUR ---
BEDSIDE Dr. Rodriguez bedside.
[2019-09-07] MEDS: MIDAZOLAM DRIP 50 mg/50mL 50 ML IV SCH ×3 (14:54→23:20)
[2019-09-07] MEDS: VASOPRESSIN 50 UNITS in D5W 5% 247.5 ML IV SCH (15:36)
[2019-09-07] MEDS: NOREPINEPHRINE 8 MG/250ML KIT 250 ML IV SCH (15:36)
--- NOTE | 2019-09-07 16:21 | NUR ---
OMNIPAQUE HELD Patient has 2,350 ccs gastric output during my shift so far. Unable to give Omnipaque at this time.
--- NOTE | 2019-09-07 16:23 | NUR ---
VERSED STARTED Patient is notably uncomfortable, moving arms and legs, opening eyes. Pressure not tolerating Diprivan. Versed started as ordered.
--- NOTE | 2019-09-07 17:00 | NUR ---
FULL LINEN CHANGE/ COOLING BLANKET ON
--- NOTE | 2019-09-07 19:30 | NUR ---
TEMP 100.8F RECTALLY - COOLING MEASURES APPLIED: LOWERED GAYMAR COOLING BLANKET TEMPERATURE. ICE PACK PLACED BEHIND NECK, AND IN RIGHT AXILLA, FAN OSCILLATING, AND COOL WASH CLOTH ON FOREHEAD.
--- NOTE | 2019-09-07 19:30 | NUR ---
OPENING NOTE: RESTLESS, FIDGETING IN BED. OPENS EYES BUT DOES NOT TRACK NOR FOLLOW COMMANDS AT THIS TIME. SINUS TACHY, HR 130s. JOHNNY PRESSURES 130s. 8.0 ETT 24 AT THE LIP. LABORED BREATHING, RR IN 20s. MODERATE THICK ORAL SECRETIONS, MINIMAL ETT SECRETIONS. SpO2<92% ON CURRENT VENT SETTINGS. ABD LARGE, ROUND AND SOFT. HYPOACTIVE BS. LBM 09/03 PER REPORT. NGT TO LIS, +AIR BOLUS, LIGHT BROWN OUTPUT. MENSAH PATENT AND INTACT, DRAINING YELLOW URINE WITH MUCOUS. RIGHT IJ TLC, CDI, AND PATENT WITH BLOOD RETURN. LEFT IJ PARTH, DRESSING CDI. SEE SKIN AND WOUND FLOWSHEET FOR ASSESSMENT. REINFORCED POC. MAINTAINED PATIENT SAFETY: BED LOCKED AND IN THE LOWEST POSITION, FREQUENT VISUAL CHECKS. NO FAMILY PRESENT AT THIS TIME. WILL CONT CARE
--- NOTE | 2019-09-07 19:45 | NUR ---
RESTARTED DIPRIVAN GTT: DESPITE VERSED AND FENTANYL GTT, PATIENT RESTLESS IN BED, RR IN 20s, HR 130s, A LINE PRESSURES 130s, DESATURATING DOWN TO 80s.
[2019-09-07] MEDS: TPN PER PHARMACY IV NR ×15 (19:52→19:53)
[2019-09-07] MEDS ORDERED: EPOETIN ALFA 10,000 UNIT/1 ML VIAL SC ONE (21:00)
--- NOTE | 2019-09-07 21:00 | NUR ---
MORE CALM THAN PREVIOUSLY: VSS. WILL ASSESS NECESSITY OF SEDATION LEVEL.
--- NOTE | 2019-09-07 21:00 | NUR ---
TEMP NOW 100F RECTALLY- CONTINUE WITH COOLING MEASURES
--- NOTE | 2019-09-07 21:00 | NUR ---
PATIENT'S BROTHER, PASCALE, AT BEDSIDE: UPDATED ON PATIENT'S CONDITION. ANSWERED ALL QUESTIONS ABLE.
[2019-09-07] MEDS: PANTOPRAZOLE 40 MG/10 ML VIAL INJ IV SCH (22:11)
--- NOTE | 2019-09-07 22:15 | NUR ---
NGT CLAMPED FOR BODY MAKE UP ARTIST
--- NOTE | 2019-09-07 22:30 | NUR ---
TEMP 99.0F RECTAL - REMOVED ICE PACKS, AND WASH RAG; WILL CONTINUE WITH COOLING BLANKET UNDER PATIENT FOR TEMPERATURE MANAGEMENT
[2019-09-08] VITALS (110 sets, daily range): BP systolic 84–128; BP diastolic 43–69
[2019-09-08] MEDS: ALBUTEROL SULF 2.5 MG/0.5ML(0.5%) NEB SOLN NEB SCH ×4 (00:14→19:14)
[2019-09-08] MEDS: IPRATROPIUM BROM 0.5 MG/2.5ML INH SOL NEB SCH ×5 (00:14→19:14)
--- NOTE | 2019-09-08 02:15 | NUR ---
NGT UNCLAMPED - 0 RESIDUAL
--- NOTE | 2019-09-08 02:30 | NUR ---
LARGE LIQUID MUCOID BROWN/GREEN STOOL - OCCULT STOOL SENT
--- NOTE | 2019-09-08 02:45 | NUR ---
BED BATH WITH CHG WIPES, BRENNAN CARE, MENSAH CARE, ORAL CARE, AND FULL LINEN CHANGE COMPLETED
--- NOTE | 2019-09-08 02:45 | NUR ---
TEMP 98.2F - REMOVED COOLING BLANKED
--- NOTE | 2019-09-08 03:00 | NUR ---
CONFIRMED WITH LAB THAT STOOL SAMPLE WAS RECEIVED
--- NOTE | 2019-09-08 03:00 | NUR ---
WHEN AWAKE, PATIENT NOTED TO STARE UP TOWARD THE LIGHTS ABOVE HIS BED, AND ALSO NOTED WITH REPETITIVE JAW MOTION SIDE TO SIDE.
[2019-09-08] MEDS: fentaNYL Drip 2500mCg/250mlNS 250 ML IV SCH ×2 (04:10→14:07)
[2019-09-08] MEDS: MIDAZOLAM DRIP 50 mg/50mL 50 ML IV SCH ×3 (04:16→16:39)
[2019-09-08 04:18] LABS: Basophils # (auto) 0 uL; Basophils % (auto) 0.3 % (0.0-2.0); Eosinophils # (auto) 0 uL; Eosinophils % (auto) 0.3 % (0.0-7.0); Hematocrit 28.6 % (41.0-53.0); Hemoglobin 9.2 g/dL (13.5-17.5); Lymphocytes # (auto) 1.2 uL; Lymphocytes % (auto) 9.1 % (10.0-50.0); Mean Corpuscular Hemoglobin 24.6 pg (28.0-32.0); Mean Corpuscular Hgb Conc. 32.1 g/dL (32.0-36.0); Mean Corpuscular Volume 76.8 fL (80.0-100.0); Monocytes # (auto) 0.7 uL; Monocytes % (auto) 5.5 % (0.0-12.0); Neutrophils # (auto) 11.3 uL; Neutrophils % (auto) 84.8 % (37.0-80.0); Platelet Count (auto) 474 10^3/uL (140-450); Red Blood Cells 3.72 10^6/uL (4.5-5.90); Red Cell Distribution Width 19.1 % (11.8-14.3); White Blood Cell 13.3 10^3/uL (4.4-10.8)
[2019-09-08 04:49] LABS: Calcium 11.8 mg/dL (8.5-10.1)
[2019-09-08 04:53] LABS: BUN/Creatinine Ratio 15.3; Phosphorus 6.7 mg/dL (2.5-4.90)
[2019-09-08 05:03] LABS: Potassium 2.7 mmol/L (3.5-5.1)
[2019-09-08] MEDS: ACYCLOVIR 200 MG/5 ML SUSP PO SCH ×2 (05:11→13:51)
[2019-09-08] MEDS: ACCU-CHEK COMFORT CURVE STRIP VI SCH ×4 (05:12→23:51)
[2019-09-08] MEDS: InsuLIN REG 1unit/0.01ml Soln (100units/ml) SC SCH ×4 (05:12→23:51)
[2019-09-08] MEDS: METOCLOPRAMIDE HCL 5MG/ml INJ 2ml VIAL IV SCH ×3 (05:12→21:53)
[2019-09-08] MEDS: LEVOTHYROXINE SODIUM 50 MCG TAB PO SCH (05:12)
--- NOTE | 2019-09-08 05:13 | NUR ---
PAGED HOSPITALIST RE: POTASSIUM LEVEL
--- NOTE | 2019-09-08 05:30 | NUR ---
ANOTHER LARGE BM - PLACED FLEXI SEAL
[2019-09-08] MEDS: POTASSIUM CHL 20MEQ/100ML 100 ML IV SCH ×2 (05:50→06:55)
[2019-09-08] MEDS ORDERED: POTASSIUM CHL 20MEQ/100ML 200 ML IV ONE (05:50)
--- NOTE | 2019-09-08 05:50 | NUR ---
SPOKE WITH REUBEN ESCOBAR: MADE AWARE OF POTASSIUM LEVEL. ORDERS FOR 40 MEQ KCL IVPB. ORDERS READBACK AND VERIFIED
--- NOTE | 2019-09-08 05:58 | NUR ---
STOOL OUTPUT SINCE FLEXISEAL PLACED = 700 ML
[2019-09-08] MEDS: PROPOFOL 100 ML IV SCH (05:59)
--- NOTE | 2019-09-08 06:30 | NUR ---
TOTAL 1 L STOOL OUT SINCE FLEXISEAL PLACED
--- NOTE | 2019-09-08 07:14 | NUR ---
REPORT RECEIVED FROM SEAT INSTALLER RN
--- NOTE | 2019-09-08 07:14 | NUR ---
REPORT AND CARE ENDORSED TO ИРИНА CLIFTON
--- NOTE | 2019-09-08 09:13 | NUR ---
FAMILY AT BEDSIDE. UPDATED ON PATIENT STATUS. ALL QUESTIONS AND CONCERNS ADDRESSED AT THIS TIME
[2019-09-08] MEDS: QUEtiapine FUMARATE 25 MG TAB PO SCH ×2 (09:32→21:54)
[2019-09-08] MEDS: PANTOPRAZOLE 40 MG/10 ML VIAL INJ IV SCH ×2 (09:32→21:53)
[2019-09-08] MEDS: MEROPENEM 500MG IVPB 50 ML IV SCH ×2 (09:32→21:54)
--- NOTE | 2019-09-08 09:42 | NUR ---
CT ABDOMEN DR. OROSCO UPDATED ON CT ABDOMEN AND 2 LARGE BOWEL MOVEMENT AND OVER 1 LITER OF STOOL. PER CANCEL CT ABDOMEN AT THIS TIME
--- NOTE | 2019-09-08 10:13 | NUR ---
DR. FAJARDO AT BEDSIDE
[2019-09-08] MEDS: DexMEDEtomidine 400 MCG in D5W 5% 96 ML IV SCH (12:50)
[2019-09-08] MEDS: ACETAMINOPHEN 325 MG TAB PO PRN (13:51)
[2019-09-08] MEDS: NOREPINEPHRINE 8 MG/250ML KIT 250 ML IV SCH ×3 (14:06→23:13)
[2019-09-08] MEDS ORDERED: Nepro With Carb Steady 1 Liter Bottle GT SCH (15:00)
[2019-09-08] MEDS ORDERED: ACYCLOVIR SOD 50MG/ML 500 MG in D5W 5% 100 ML IV ONE (15:00)
[2019-09-08] MEDS ORDERED: VANCOMYCIN PER PHARMACY 0 MG IV SCH (15:00)
--- NOTE | 2019-09-08 15:03 | NUR ---
DR. EDWARD AT BEDSIDE HAD LENGTHY DISCUSSION WITH FAMILY REGARDING PATIENT STATUS AND PLAN OF CARE, ALL QUESTIONS AND CONCERNS ADDRESSED AT THIS TIME
[2019-09-08] MEDS ORDERED: VANCOMYCIN 1GM/250ML 250 ML IV ONE (16:00)
[2019-09-08] MEDS ORDERED: VANCOMYCIN 1,500 MG in D5W 5% 250 ML IV ONE (16:30)
[2019-09-08] MEDS: VASOPRESSIN 50 UNITS in D5W 5% 247.5 ML IV SCH (17:00)
[2019-09-08] MEDS: TPN PER PHARMACY IV NR ×8 (19:53)
[2019-09-08] MEDS ORDERED: TPN PER PHARMACY IV ONE ×7 (20:00)
--- NOTE | 2019-09-08 20:15 | NUR ---
OPENING NOTE: CALM, OPENS EYES BUT DOES NOT TRACK NOR FOLLOW COMMANDS AT THIS TIME. SINUS TACHY, HR 110-120s. JOHNNY PRESSURES 90-110s. 8.0 ETT 24 AT THE LIP. EVEN AND UNLABORED BREATHING, LS WITH EXPIRATORY WHEEZE THROUGHOUT. SCANT THICK ORAL SECRETIONS, MINIMAL ETT SECRETIONS. SpO2 >92% ON CURRENT VENT SETTINGS. ABD LARGE, ROUND AND SOFT. HYPOACTIVE BS. LBM PER REPORT, FLEXISEAL DRAINING. NGT +AIR BOLUS, NEPHRO AT 30ML/HR, NO RESIDUAL. MENSAH PATENT AND INTACT, DRAINING YELLOW URINE WITH MUCOUS. RIGHT IJ TLC, CDI, AND PATENT WITH BLOOD RETURN. LEFT IJ PARTH, DRESSING CDI. SEE SKIN AND WOUND FLOWSHEET FOR ASSESSMENT, WOUNDS WEEPING TO LOWER EXTREMITIES. REINFORCED POC. MAINTAINED PATIENT SAFETY: BED LOCKED AND IN THE LOWEST POSITION, FREQUENT VISUAL CHECKS. NO FAMILY PRESENT AT THIS TIME. WILL CONT CARE
--- NOTE | 2019-09-08 22:11 | NUR ---
FAMILY AT BEDSIDE: ANSWERED ALL QUESTIONS ABLE. NO FURTHER NEEDS.
--- NOTE | 2019-09-08 22:33 | NUR ---
BP LOW - INCREASED LEVOPHED DRIP, AND DECREASED FENTANYL AND VERSED GTT
[2019-09-09] VITALS (108 sets, daily range): BP systolic 93–144; BP diastolic 46–82
[2019-09-09] MEDS: IPRATROPIUM BROM 0.5 MG/2.5ML INH SOL NEB SCH ×4 (00:07→18:41)
[2019-09-09] MEDS: ALBUTEROL SULF 2.5 MG/0.5ML(0.5%) NEB SOLN NEB SCH ×4 (00:07→18:41)
[2019-09-09] MEDS: MIDAZOLAM DRIP 50 mg/50mL 50 ML IV SCH ×4 (00:48→18:18)
--- NOTE | 2019-09-09 00:48 | NUR ---
NOTED WITH ABDOMINAL BREATHING, INCREASED SEDATION
[2019-09-09] MEDS: fentaNYL Drip 2500mCg/250mlNS 250 ML IV SCH ×2 (02:47→17:00)
--- NOTE | 2019-09-09 02:53 | NUR ---
WOUND CARE: BILATERAL LOWER EXTREMITIES: NOTED WITH GENERALIZED EDEMA TO BILATERAL LOWER EXTREMITIES WITH ECCHYMOSIS, AND MOTTLING. NUMEROUS BLISTERS OF VARIOUS SIZES, SOME INTACT, SOME POPPED. CLEANSED ALL AREAS WITH WOUND CLEANSER, PAT DRY WITH STERILE GAUZE, APPLIED HONEY GAUZE TO OPEN AREAS OR POPPED BLISTERS, COVERED WITH ABD PADS, WRAPPED WITH KERLIX, AND SECURED WITH STRETCH NETTING. RIGHT WRIST SKIN TEARS AND BLISTERS: CLEANSED WITH WOUND CLEANSER. PAT DRY WITH STERILE GAUZE. APPLIED HONEY GAUZE, COVERED WITH ABD PAD, SECURED WIT STRETCH NETTING.
--- NOTE | 2019-09-09 02:53 | NUR ---
BED BATH WITH CHG WIPES, BRENNAN CARE, MENSAH CARE, ORAL CARE, AND FULL LINEN CHANGED
[2019-09-09 03:49] LABS: Basophils # (auto) 0.1 uL; Basophils % (auto) 0.7 % (0.0-2.0); Eosinophils # (auto) 0.2 uL; Eosinophils % (auto) 1.4 % (0.0-7.0); Hematocrit 27.6 % (41.0-53.0); Hemoglobin 8.6 g/dL (13.5-17.5); Lymphocytes # (auto) 1.2 uL; Lymphocytes % (auto) 10.1 % (10.0-50.0); Mean Corpuscular Hemoglobin 24.2 pg (28.0-32.0); Mean Corpuscular Hgb Conc. 31.2 g/dL (32.0-36.0); Mean Corpuscular Volume 77.5 fL (80.0-100.0); Monocytes # (auto) 0.6 uL; Neutrophils # (auto) 9.7 uL; Neutrophils % (auto) 82.8 % (37.0-80.0); Nucleated Red Blood Cells % 0.2 %; Platelet Count (auto) 427 10^3/uL (140-450); Red Blood Cells 3.57 10^6/uL (4.5-5.90); Red Cell Distribution Width 19.3 % (11.8-14.3); White Blood Cell 11.7 10^3/uL (4.4-10.8)
[2019-09-09] MEDS: DexMEDEtomidine 400 MCG in D5W 5% 96 ML IV SCH ×2 (04:00→19:10)
[2019-09-09 04:02] LABS: INR 0.98 (0.9-1.15); Partial Thromboplastin Time 28.4 sec (23.64-32.05)
--- NOTE | 2019-09-09 04:17 | NUR ---
INQUIRED WITH LAB ABOUT CMP RESULTS, PER LAB THEY WILL FOLLOW UP AND INFORM JR. JAVA DEVELOPER IF GREEN TOP NEEDS TO BE SENT
[2019-09-09 04:30] LABS: Albumin 1.8 g/dL (3.4-5.0); Calcium 11.3 mg/dL (8.5-10.1); Magnesium 1.8 mg/dL (1.6-2.6); Potassium 3.7 mmol/L (3.5-5.1)
[2019-09-09 04:36] LABS: BUN/Creatinine Ratio 16.7; Phosphorus 6.6 mg/dL (2.5-4.90); Pre Albumin 22.1 mg/dL (20.0-40.0); Total Protein 5.8 g/dL (6.4-8.2)
[2019-09-09] MEDS: NOREPINEPHRINE 8 MG/250ML KIT 250 ML IV SCH ×3 (05:00→18:19)
[2019-09-09] MEDS: METOCLOPRAMIDE HCL 5MG/ml INJ 2ml VIAL IV SCH ×3 (05:50→22:00)
[2019-09-09] MEDS: ACCU-CHEK COMFORT CURVE STRIP VI SCH ×3 (05:51→18:07)
[2019-09-09] MEDS: LEVOTHYROXINE SODIUM 50 MCG TAB PO SCH (05:51)
[2019-09-09] MEDS: InsuLIN REG 1unit/0.01ml Soln (100units/ml) SC SCH ×3 (05:51→18:00)
--- NOTE | 2019-09-09 06:32 | NUR ---
CLOSING NOTE: REMAINS INTUBATED AND ON SEDATION. GROSSLY UNCHANGED. TMAX 99.3F. VSS AT THIS TIME. WILL ENDORSE CARE TO DAY SHIFT.
--- NOTE | 2019-09-09 07:15 | NUR ---
REPORT AND CARED ENDORSED TO ELODIA GIFFORD
--- NOTE | 2019-09-09 07:15 | NUR ---
REPORT RECEIVED FROM OPHELIA RN
--- NOTE | 2019-09-09 09:30 | NUR ---
FAMILY AT BEDSIDE FAMILY WAS UPDATED ON PT'S PLAN OF CARE, QUESTIONS AND CONCERNS ADDRESSED.
[2019-09-09] MEDS: PANTOPRAZOLE 40 MG/10 ML VIAL INJ IV SCH ×2 (09:44→22:00)
[2019-09-09] MEDS: MEROPENEM 500MG IVPB 50 ML IV SCH ×2 (09:46→22:00)
[2019-09-09] MEDS: QUEtiapine FUMARATE 25 MG TAB PO SCH ×2 (09:46→22:00)
--- NOTE | 2019-09-09 10:32 | NUR ---
DR. FONSECA AT THE BEDSIDE
--- NOTE | 2019-09-09 11:50 | NUR ---
DR OROSCO AT THE BEDSIDE. UPDATED FAMILY ON PT'S CARE AND ADDRESSED FAMILIES CONCERNS. SEDATED PT DOWN TOLERATED.
--- NOTE | 2019-09-09 14:20 | NUR ---
NUTRITION FOLLOW UP NOTES ADDITIONAL RECOMMENDATION: 1) When ready to wean off TPN, gradually advance EN support of Nepro with Carb Steady to goal rate @50ml/hr. Pt wt is 125.9 kg today. Pt was intubated and sedated with fentanyl, with no relatives at bedside when rounded this morning. Will continue to monitor pertinent labs and reassess nutrient needs prn. Pt is currently NPO, on TPN of 1422.25 ml @ 60 ml/hr, providing 52%-67% of energy needs, 88%-102% of protein needs, and 850 NPCs. Pt was also receiving Nepro with Carb Steady @30ml/hr, which was temporarily being held, providing an additional 1296 kcal, 58 g Protein, 523 ml free water. Estimated Needs: 6475-6187 kcal (14-18 kcal/kgBW), 97 to 113 gms protein (1.2-1.4 gms/kg Adjusted BW). Labs 09/08: TG 226 H, alkaline phosphatase 157 H, TP 5.8 L, Cl 93 L, CO2 33 H, BUN 125 H, Cr 7.50 H, Serum glucose 170 H, POC 170 H, Ca 11.3 H, P 6.6 H, AST 92 H, ALT 88 H GI: Last BM noted on 09/08/19 per post graduate intern. BS: 14, mod risk, mucosal scabbed ear. Please see wound assessment report for full details. PES: 1) Altered nutrition related lab values R/T current acute/chronic medical condition AEB elevated RFTs, hyperglycemia, hypertriglyceridemia. 2) Obese, Class III R/T excessive energy intake prior to admission AEB %IBW 218 and BMI 50. 3) Inadequate energy intake R/T 0% PO intake and increased energy needs AEB pt under sedation, intubation and NPO status (Resolved) Comments Will continue to monitor PO intake, pertinent labs, skin status and weight trends. F/u in 2 to 3 days. Additional Recommendations: 1) Continue to carefully monitor pt PN and EN status. 2) Continue current plan of care.
--- NOTE | 2019-09-09 15:40 | NUR ---
DR. FAJARDO AT BEDSIDE MD UPDATED FAMILY ON PT'S CONDITION, ANSWERED QUESTIONS AND ADDRESSED THEIR CONCERNS. (ARTHUR) AND SON ARE AT BEDSIDE DURING MD'S ROUNDING. PER MD DIALYSIS TOMORROW.
[2019-09-09] MEDS: VASOPRESSIN 50 UNITS in D5W 5% 247.5 ML IV SCH (17:00)
--- NOTE | 2019-09-09 17:50 | NUR ---
TPN BAG IS RUNNING LOW, PHARMACY MADE AWARE, HANGED 2000 TPN BAG PER PHARMACIST
[2019-09-09] MEDS: PROPOFOL 100 ML IV SCH (18:55)
--- NOTE | 2019-09-09 19:00 | NUR ---
Report received from ИРИНА Jackson. Patient IV drips as follow: Levophed drip at 18.96 mcg/min (35.55 ml/hr); Versed drip 4 mg/hr (4 ml/hr); Fentanyl drip 150 mcg/hr (15 ml/hr); TPN 60 ml/hr; IVF NS 10 ml/hr; NGT Feeding Nepro with Carbsteady 1.8 matilde 30 ml/hr. Will continue with POC; and, will continue to monitor VS & clinical status.
[2019-09-09] MEDS ORDERED: TPN PER PHARMACY IV NR ×8 (20:00)
[2019-09-09] MEDS: D5W 5% IV SCH (20:54)
[2019-09-09] MEDS: ACYCLOVIR SOD IV SCH (20:54)
[2019-09-10] VITALS (102 sets, daily range): BP systolic 91–133; BP diastolic 45–88
--- NOTE | 2019-09-10 | NUR ---
Accucheck 138 mg/dl. Patient covered with Regular Insulin 2 units SQ left deltoid.
[2019-09-10] MEDS: ACCU-CHEK COMFORT CURVE STRIP VI SCH ×4 (00:06→19:53)
[2019-09-10] MEDS: InsuLIN REG 1unit/0.01ml Soln (100units/ml) SC SCH ×4 (00:10→19:53)
[2019-09-10] MEDS: IPRATROPIUM BROM 0.5 MG/2.5ML INH SOL NEB SCH ×4 (00:30→18:05)
[2019-09-10] MEDS: ALBUTEROL SULF 2.5 MG/0.5ML(0.5%) NEB SOLN NEB SCH ×4 (00:30→18:05)
[2019-09-10] MEDS: NOREPINEPHRINE 8 MG/250ML KIT 250 ML IV SCH ×2 (02:28→08:39)
--- NOTE | 2019-09-10 03:00 | NUR ---
School Library Media Program Director collected blood specimens form [facility] T[facility]. Specimens given to School Psychologist Assistant, then specimens sent to lab.
[2019-09-10 03:26] LABS: Hemoglobin 7.7 g/dL (13.5-17.5); White Blood Cell 12.2 10^3/uL (4.4-10.8)
[2019-09-10 03:28] LABS: Basophils # (auto) 0.1 uL; Basophils % (auto) 0.8 % (0.0-2.0); Eosinophils # (auto) 0.1 uL; Eosinophils % (auto) 0.6 % (0.0-7.0); Hematocrit 24.2 % (41.0-53.0); Lymphocytes # (auto) 1.5 uL; Lymphocytes % (auto) 12.5 % (10.0-50.0); Mean Corpuscular Hemoglobin 24.8 pg (28.0-32.0); Mean Corpuscular Hgb Conc. 31.7 g/dL (32.0-36.0); Mean Corpuscular Volume 78.4 fL (80.0-100.0); Monocytes # (auto) 0.7 uL; Monocytes % (auto) 5.5 % (0.0-12.0); Neutrophils # (auto) 9.8 uL; Neutrophils % (auto) 80.6 % (37.0-80.0); Nucleated Red Blood Cells % 0.1 %; Platelet Count (auto) 398 10^3/uL (140-450); Red Blood Cells 3.08 10^6/uL (4.5-5.90); Red Cell Distribution Width 19.1 % (11.8-14.3)
[2019-09-10 03:50] LABS: Albumin 1.5 g/dL (3.4-5.0); Calcium 10.2 mg/dL (8.5-10.1); Magnesium 1.7 mg/dL (1.6-2.6); Potassium 4.1 mmol/L (3.5-5.1)
[2019-09-10 03:54] LABS: Bilirubin, Total 0.7 mg/dL (0.2-1.0); Phosphorus 6.3 mg/dL (2.5-4.90); Total Protein 5.4 g/dL (6.4-8.2)
[2019-09-10 04:09] LABS: BUN/Creatinine Ratio 17.4
[2019-09-10] MEDS ORDERED: LEVOTHYROXINE SODIUM 50 MCG TAB ONE (06:05)
[2019-09-10] MEDS ORDERED: METOCLOPRAMIDE HCL 5MG/ml INJ 2ml VIAL ONE (06:05)
[2019-09-10] MEDS: METOCLOPRAMIDE HCL 5MG/ml INJ 2ml VIAL IV SCH ×3 (06:14→22:00)
[2019-09-10] MEDS: LEVOTHYROXINE SODIUM 50 MCG TAB PO SCH (06:37)
[2019-09-10] MEDS: MIDAZOLAM DRIP 50 mg/50mL 50 ML IV SCH (08:38)
[2019-09-10] MEDS: fentaNYL Drip 2500mCg/250mlNS 250 ML IV SCH (08:39)
[2019-09-10] MEDS: QUEtiapine FUMARATE 25 MG TAB PO SCH ×2 (10:17→22:00)
[2019-09-10] MEDS: MEROPENEM 500MG IVPB 50 ML IV SCH ×2 (10:17→22:00)
[2019-09-10] MEDS: PANTOPRAZOLE 40 MG/10 ML VIAL INJ IV SCH ×2 (10:17→22:00)
[2019-09-10] MEDS: DexMEDEtomidine 400 MCG in D5W 5% 96 ML IV SCH (10:20)
--- NOTE | 2019-09-10 10:35 | NUR ---
FAMILY: Patient's son and friend at bedside. Updated on patient condition, informed son of dialysis catheter malfunction and probable need to exchange catheter. Informed him of patient increasing need for vasopressor support as well. All questions and concerns addressed.
[2019-09-10] MEDS ORDERED: ALBUMIN 25% 100 ML IV PRN (11:00)
--- NOTE | 2019-09-10 11:00 | NUR ---
SEDATION VACATION: Versed drip titrated off. Will monitor for patient tolerance prior to adjusting Fentanyl drip.
--- NOTE | 2019-09-10 11:15 | NUR ---
AT BEDSIDE; Dr. Fairbanks at bedside, updated patient's son on patient's condition. Discussed with him meeting with the rest of the family to discuss code status, as well as discussing possibility of trach and peg if family continues to want to pursue all care. Son verbalized understanding.
--- NOTE | 2019-09-10 13:00 | NUR ---
SEDATION: Patient becoming increasing tachycardic, HR 110's. Noted to have facial grimacing with nursing cares. Fentanyl drip to remain infusing as per IV spreadsheet.
--- NOTE | 2019-09-10 13:45 | NUR ---
FAMILY; Patient's son states that his friend is a nurse and has sent a text message to him recommending repeat of UA. Explained that often the physician does not repeat the culture if the WBC count, and temperature are staying consistent. However, informed son that this will be brought to the physician and see if orders are obtained.
--- NOTE | 2019-09-10 14:11 | NUR ---
PICC LINE NURSE: PICC line nurse at bedside.
[2019-09-10] MEDS ORDERED: LIDOCAINE 1% (LOCAL ANESTH.) PF 5ml SDV ID ONE (15:15)
--- NOTE | 2019-09-10 15:15 | NUR ---
PICC line placement Patient significant other (Son/daughter) educated on need for PICC line placement. All risks and benefits explained and all questions and concerns addressed prior to procedure. Noted past medical history and allergies with no contraindications. INR and Plt counts within acceptable range. 5fr PICC line inserted via Right Basilic vein using [employer] US and Tip Location System. Sterile technique with maximum barrier precautions utilized. Blood return obtained from each of the three lumens and each flushed easily with NS using proper technique. PICC secured with Stat-lock; biodisc and occlusive dressing applied. Stat portable chest x-ray obtained for PICC tip placement. *Baseline Arm Circumference 34cm. External length 1cm. Internal length 48cm. PICC lot #[id number].
--- NOTE | 2019-09-10 15:31 | NUR ---
Okay to use PICC line Xray completed and reviewed. Okay to use PICC line. Primary RN notified.
--- NOTE | 2019-09-10 16:06 | NUR ---
SS consult SS consult came in for "Assistance with disability patient work." SS called pt's ICU nurse Rand to inform her that the hospital Social workers do not assist with disability paperwork and that the patient or family members would need to get the paperwork online and take it to the PCP. Pt's nurse stated that she would forward the message to the family members who were asking. Addendum: 09/10/19 at 1614 by VIDYA ORLANDO Amended: Links added.
[2019-09-10] MEDS: VASOPRESSIN 50 UNITS in D5W 5% 247.5 ML IV SCH (17:00)
[2019-09-10] MEDS ORDERED: VANCOMYCIN 1GM/250ML 250 ML IV ONE (17:00)
--- NOTE | 2019-09-10 18:35 | NUR ---
AT BEDSIDE: Dr. Wong at bedside for dialysis catheter insertion. Successful insertion of neda catheter to right IJ, removal of left IJ neda catheter.
[2019-09-10] MEDS: PROPOFOL 100 ML IV SCH (18:55)
[2019-09-10 18:58] LABS: Urine Bacteria FEW /hpf (None Seen); Urine Blood 2+ /uL (Negative); Urine Specific Gravity 1.012 (1.001-1.035); Urine WBC 186 /hpf (0 - 3)
--- NOTE | 2019-09-10 19:30 | NUR ---
Report received from ИРИНА Andrews. Patient [facility] HD catheter non-functional and had positive 300 ml after HD initiated. LIJ discontinued at change of shift by ИРИНА Andrews. RIJ CVC TLC discontinued earlier in day with PICC Line KENIA single lumen placed. HD neda catheter place to [facility] at beginning of change of shift with PCXR done at bedside and confirmed placement fo HD catheter. HD is scheduled for am. Versed and TPN discontinued earlier in day shift. Family Conference planned with PCP regarding Prognosis. Patient has Fentanyl drip at 150 mcg/hr (15 ml/hr) infusion. Levophed drip increased earlier in day shift to 25.98 mcg/min (48.73 ml/hr). Will continue with POC; and, will continue to monitor VS & clinical status.
[2019-09-10] MEDS ORDERED: TPN PER PHARMACY IV NR ×7 (20:00)
[2019-09-10] MEDS ORDERED: HEPARIN 1,000 UNITS/ml 1ML VIAL ONE (20:29)
[2019-09-10] MEDS ORDERED: HEPARIN 1,000 UNITS/ml 1ML VIAL IV ONE (20:30)
[2019-09-10] MEDS ORDERED: EPOETIN ALFA 10,000 UNIT/1 ML VIAL IV ONE (21:00)
[2019-09-10] MEDS: D5W 5% IV SCH (21:07)
[2019-09-10] MEDS: ACYCLOVIR SOD IV SCH (21:07)
[2019-09-10] MEDS: SODIUM CHLOR 0.9% PF (SALINE LOCK) 10ML VIAL/SYR IV SCH (22:00)
--- NOTE | 2019-09-10 23:45 | NUR ---
Patient Arterial Line BP 81/40. Patient Levophed drip increase to 30 mcg/min (56.25 ml/hr).
[2019-09-11] VITALS (103 sets, daily range): BP systolic 89–142; BP diastolic 52–81
--- NOTE | 2019-09-11 | NUR ---
Accucheck 113 mg/dl. No coverage required.
--- NOTE | 2019-09-11 00:10 | NUR ---
New Levophed drip bag changed. Resumed infusion at 30 mcg/min.
[2019-09-11] MEDS: NOREPINEPHRINE 8 MG/250ML KIT 250 ML IV SCH (00:18)
[2019-09-11] MEDS: ALBUTEROL SULF 2.5 MG/0.5ML(0.5%) NEB SOLN NEB SCH ×4 (00:22→19:07)
[2019-09-11] MEDS: IPRATROPIUM BROM 0.5 MG/2.5ML INH SOL NEB SCH ×4 (00:22→19:08)
--- NOTE | 2019-09-11 00:45 | NUR ---
New Nepro 1.8 matilde carbsteady replaced and resumed feeding at 30 ml/hr.
--- NOTE | 2019-09-11 00:55 | NUR ---
New Fentanyl drip bag replaced and infusion resumed at 150 mcg/hr.
[2019-09-11] MEDS: fentaNYL Drip 2500mCg/250mlNS 250 ML IV SCH (00:58)
[2019-09-11] MEDS: DexMEDEtomidine 400 MCG in D5W 5% 96 ML IV SCH ×2 (01:30→16:40)
--- NOTE | 2019-09-11 03:00 | NUR ---
Paperback Machine Operator collected am blood from PICC Line. Specimens given to Flying Shear Operator, specimens sent to lab.
[2019-09-11 03:51] LABS: Basophils # (auto) 0.1 10 ^3/uL (0-0.2); Basophils % (auto) 0.6 % (0.0-2.0); Eosinophils # (auto) 0.1 10 ^3/uL (0-0.8); Eosinophils % (auto) 0.6 % (0.0-7.0); Hematocrit 20.9 % (41.0-53.0); Lymphocytes # (auto) 1.1 10 ^3/uL (0.4-5.4); Lymphocytes % (auto) 12.1 % (10.0-50.0); Mean Corpuscular Hemoglobin 25.6 pg (28.0-32.0); Mean Corpuscular Hgb Conc. 32.4 g/dL (32.0-36.0); Mean Corpuscular Volume 79.1 fL (80.0-100.0); Monocytes # (auto) 0.7 10 ^3/uL (0-1.3); Monocytes % (auto) 7.6 % (0.0-12.0); Neutrophils # (auto) 7.3 10 ^3/uL (1.6-8.6); Neutrophils % (auto) 79.1 % (37.0-80.0); Platelet Count (auto) 334 10^3/uL (140-450); Red Blood Cells 2.64 10^6/uL (4.5-5.90); Red Cell Distribution Width 19.3 % (11.8-14.3); White Blood Cell 9.2 10^3/uL (4.4-10.8)
[2019-09-11 03:52] LABS: Hemoglobin 6.7 g/dL (13.5-17.5)
--- NOTE | 2019-09-11 04:05 | NUR ---
Residence Hall Director return from lunch break. Notice on computer HGB 6.7. Hospitalist REUBEN Aviles called and notified HGB 6.4. Hospitalist order PRBC 1 units.
--- NOTE | 2019-09-11 04:54 | NUR ---
Contact Acid Plant Operator at bedside. Allied Health Professional collected blood (Type & Screen) specimen and specimen given to Contact Acid Plant Operator. Specimen sent to lab.
[2019-09-11] MEDS ORDERED: NOREPINEPHRINE 8 MG/250ML KIT 250 ML IV ONE (05:01)
--- NOTE | 2019-09-11 05:14 | NUR ---
Levophed drip empty bag replaced.
--- NOTE | 2019-09-11 05:25 | NUR ---
PCXR done at bedside.
[2019-09-11] MEDS: ACCU-CHEK COMFORT CURVE STRIP VI SCH ×4 (05:37→18:57)
[2019-09-11] MEDS: InsuLIN REG 1unit/0.01ml Soln (100units/ml) SC SCH ×4 (05:42→18:00)
--- NOTE | 2019-09-11 05:42 | NUR ---
Accucheck 131 mg/dl. Patient covered with Regular Insulin 2 units SQ right deltoid.
[2019-09-11] MEDS: METOCLOPRAMIDE HCL 5MG/ml INJ 2ml VIAL IV SCH ×3 (05:46→21:43)
--- NOTE | 2019-09-11 06:00 | NUR ---
[place] catheter discontinued.
--- NOTE | 2019-09-11 06:42 | NUR ---
Respiratory note: RECEIVED PATIENT ON V14 ESPRIT VENT ORALLY INTUBATED WITH AN 8.0 ETT SECURED VIA FEDERICO AT THE 24CM MARKING AT THE LIP, AND MECHANICALLY VENTILATED WITH THE A CHARTED SETTINGS. SPO2 96%, LUNG SOUNDS DIM T/O, SMALL AMOUNT OF CREAMY SECRETIONS WHEN SUCTIONED. SKIN IS WARM/DRY TO THE TOUCH AND IS SEVERELY BROKEN DOWN ON LEFT SIDE OF LIPS; MULTIPLE WOUNDS/SORES NOTED ON BOTH UPPER AND LOWER LIP. THER EIS A NGT IN THE RIGHT NARE, A PARTH CATH IS PLACED ON THE RIGHT SIDE NECK. THERE IS A PICC LINE PLACED IN THE RIGHT UPPER ARM, AND AN A-LINE PLACED IN THE LEFT BRACHIAL ARTERY. PITTING EDEMA NOTED IN BILATERAL UPPER AND LOWER EXTREMITIES. FINGER TIPS ARE NECROTIC ON BOTH HANDS, TOES ARE NECROTIC ON BOTH FEET. NO NEW CXR TO ASSESS. PATIENT IS UNRESPONSIVE TO BOTH VERBAL/TACTILE STIMULI AND IS SEDATED ON A FENTANYL DRIP. HE IS RESTING COMFORTABLY AND TOLERATING VENT WELL, NO CHANGES MADE. VENT PLUGGED INTO RED OUTLET AND ALL ALARMS ARE SET AND AUDIBLE. WILL CONTINUE TO ASSESS PATIENT WELL VENTILATOR FUNCTION. CAIO-NEB RUN INLINE.
[2019-09-11] MEDS ORDERED: SODIUM CHL 0.9% 1000 ML BAG XX ONE ×2 (07:00→12:00)
[2019-09-11] MEDS: LEVOTHYROXINE SODIUM 50 MCG TAB PO SCH (07:00)
--- NOTE | 2019-09-11 08:30 | NUR ---
WOUND CARE; Wound care performed to wound on left and right foot as well as right hand as per wound care orders. Optifoam dressing applied to denuded blisters to right knee, optifoam gentle dressing applied to sacrum.
--- NOTE | 2019-09-11 09:00 | NUR ---
SEDATION VACATION: Titrated down Fentanyl drip from 150 to 125 mcg's, patient began having labored respirations and facial grimacing. Returned Fentanyl to 150 mcg's with resolution of symptoms.
--- NOTE | 2019-09-11 10:30 | NUR ---
DIALYSIS CENTER: Call placed to [facility] dialysis to determine ETA of dialysis nurse. Spoke with annette who states that patient is not on the schedule for today and had dialysis yesterday. Informed annette that the patient did not have a complete dialysis treatment yesterday as the catheter malfunctioned and would not allow for dialysis to take place. Also informed her that the patient had a new dialysis catheter inserted yesterday and there are orders from Dr. Velásquez for dialysis today. nAnette states that she will notified ИРИНА.
[2019-09-11 10:38] LABS: Potassium 4.7 mmol/L (3.5-5.1)
[2019-09-11 10:44] LABS: BUN/Creatinine Ratio 18.1; Calcium 10.1 mg/dL (8.5-10.1)
--- NOTE | 2019-09-11 11:34 | NUR ---
MD AT BEDSIDE: Dr. Velásquez at bedside, spoke with patient's sister and son.
--- NOTE | 2019-09-11 11:45 | NUR ---
MD AT BEDSIDE: Dr. Fairbanks at bedside, spoke with patient's sister and son regarding prognosis. Informed family patient is not candidate for any invasive surgical intervention.
--- NOTE | 2019-09-11 12:30 | NUR ---
DIALYSIS; Dialysis nurse at bedside.
[2019-09-11] MEDS: QUEtiapine FUMARATE 25 MG TAB PO SCH ×2 (12:34→21:43)
[2019-09-11] MEDS: PANTOPRAZOLE 40 MG/10 ML VIAL INJ IV SCH ×2 (12:34→21:43)
[2019-09-11] MEDS: SODIUM CHLOR 0.9% PF (SALINE LOCK) 10ML VIAL/SYR IV SCH ×2 (12:36→21:44)
[2019-09-11] MEDS: CALCIUM ACETATE 667 MG CAP PO SCH ×2 (12:36→18:57)
[2019-09-11] MEDS ORDERED: ALBUMIN 25% 100 ML IV ONE ×2 (13:16→13:30)
[2019-09-11] MEDS: MIDAZOLAM DRIP 50 mg/50mL 50 ML IV SCH (14:54)
[2019-09-11] MEDS: MEROPENEM 500MG IVPB 50 ML IV SCH ×2 (16:49→21:44)
[2019-09-11] MEDS: VASOPRESSIN 50 UNITS in D5W 5% 247.5 ML IV SCH (17:00)
[2019-09-11] MEDS ORDERED: VANCOMYCIN 500 MG in D5W 5% 100 ML IV ONE (17:00)
[2019-09-11] MEDS ORDERED: NOREPINEPHRINE BITARTRATE 16 MG in D5W 5% 250 ML IV SCH (17:01)
[2019-09-11] MEDS: NOREPINEPHRINE BITARTRATE 16 MG in SODIUM CHL 0.9% 250 ML IV SCH (18:05)
[2019-09-11] MEDS ORDERED: VANCOMYCIN 1GM/250ML 250 ML IV ONE (18:29)
[2019-09-11] MEDS: PROPOFOL 100 ML IV SCH (18:55)
--- NOTE | 2019-09-11 18:59 | NUR ---
FAMILY: Patient's son Hakeem at bedside, requesting family meeting with Dr. Fairbanks on Tuesday around 11 am if possible. Also spoke with Hakeem regarding his friend Naty; he states that he would like for the bedside nurse to speak with her and give her updates as possible.
--- NOTE | 2019-09-11 19:00 | NUR ---
DR. SOSA AT BEDSIDE. NO NEW ORDERS
--- NOTE | 2019-09-11 19:40 | NUR ---
1915- CARE ASSUMED. 193 - ASSESSMENT - PT. INTUBATED AND SEDATED ON 150 MCG/HR FENTANYL THRU TRIPLE LUMEN PICC LINE TO RAC. HR 120'S SINUS, SBP 120-130'S PER ART LINE TO LT. AXILLARY AREA. SATS 95% ON 50% FIO2. LUNGS - BILATERALLY COARSENESS ON AUSCULTATION. LARGE AMT. OF CREAMY, BROWN SECRETIONS SUCTIONED ORALLY. LARGE AMT. OF SORES TO LIPS, LEFT SIDE AND SIDE OF MOUTH. SORE TO RIGHT LOWER LIP AND TIP OF TONGUE. SKIN - LARGE AMT. OF NECROSIS NOTED TO TOE TIPS, AND FINGER TIP TO RIGHT HAND. LARGE BLISTERS PRESENT TO SIDE OF RIGHT FOOT AND BLISTERS TO RLW. DRESSING TO BILATERAL FEET. PEDAL PULSES PALPABLE AN STRONG. SKIN WARM AND DRY BUT WITH DISCOLORATION. RIGH IJ PARTH CATH, MENSAH CATH TO DD WITH YELLOW, CLOUDY URINE, + SEDIMENT. ABDOMEN - LARGE, HYPOACTIVE BOWEL SOUNDS. WILL CONTINUE TO MONITOR.
[2019-09-11] MEDS ORDERED: EPOETIN ALFA 10,000 UNIT/1 ML VIAL SC ONE (21:00)
[2019-09-11] MEDS: ACYCLOVIR SOD IV SCH (22:19)
[2019-09-11] MEDS: D5W 5% IV SCH (22:19)
[2019-09-11] MEDS: ACETAMINOPHEN 325 MG TAB PO PRN (22:19)
[2019-09-12] VITALS (105 sets, daily range): BP systolic 70–146; BP diastolic 32–70
[2019-09-12] MEDS: ALBUTEROL SULF 2.5 MG/0.5ML(0.5%) NEB SOLN NEB SCH ×5 (00:44→23:52)
[2019-09-12] MEDS: IPRATROPIUM BROM 0.5 MG/2.5ML INH SOL NEB SCH ×5 (00:44→23:52)
[2019-09-12] MEDS: ACCU-CHEK COMFORT CURVE STRIP VI SCH ×4 (00:47→18:16)
[2019-09-12] MEDS: InsuLIN REG 1unit/0.01ml Soln (100units/ml) SC SCH ×4 (00:50→18:00)
--- NOTE | 2019-09-12 01:00 | NUR ---
TEMP RECTAL 102.6, ICE BAGS TO ARM PITS BRENNAN AREA, HEAD AND GROIN. FAN IN PLACE, WILL PROVIDE BATH AND CONTINUE TO MONITOR.
--- NOTE | 2019-09-12 01:30 | NUR ---
COMPLETE BED BATH WITH X3 NSG ASSIST FOR TURNING. CONTINUES TO HAVE ELEVATED TEMPERATURES, WITH NO REDUCTION NOTED AFTER TYLENOL GIVEN EARLIER. BED BATH PROVIDED, WITH WOUND CARE. BLISTERS AND SCABS TO MOUTH REMAIN. SEVERAL AREAS OF MOTTLING NOPTED THRU BODY INCLUDING BILAT. NIPPLE AREAS. NECOTRIC PENIS WITH BLEEDING. RECTAL TUBE WITH LIGHT, RED BROWN FLUID DRAINING. FAMILY AWAITING TO VISIT POST BATH.
[2019-09-12] MEDS ORDERED: NOREPINEPHRINE 8 MG/250ML KIT 0 ML IV ONE (02:57)
[2019-09-12 03:56] LABS: Basophils # (auto) 0.1 10 ^3/uL (0-0.2); Basophils % (auto) 0.5 % (0.0-2.0); Eosinophils # (auto) 0 10 ^3/uL (0-0.8); Eosinophils % (auto) 0.4 % (0.0-7.0); Hematocrit 24.3 % (41.0-53.0); Hemoglobin 7.8 g/dL (13.5-17.5); Lymphocytes % (auto) 10.2 % (10.0-50.0); Mean Corpuscular Hemoglobin 25.1 pg (28.0-32.0); Mean Corpuscular Hgb Conc. 32.2 g/dL (32.0-36.0); Mean Corpuscular Volume 77.9 fL (80.0-100.0); Monocytes # (auto) 0.9 10 ^3/uL (0-1.3); Monocytes % (auto) 9.2 % (0.0-12.0); Neutrophils # (auto) 7.5 10 ^3/uL (1.6-8.6); Neutrophils % (auto) 79.7 % (37.0-80.0); Platelet Count (auto) 386 10^3/uL (140-450); Red Blood Cells 3.12 10^6/uL (4.5-5.90); Red Cell Distribution Width 18.4 % (11.8-14.3); White Blood Cell 9.5 10^3/uL (4.4-10.8)
[2019-09-12] MEDS: NOREPINEPHRINE BITARTRATE 16 MG in SODIUM CHL 0.9% 250 ML IV SCH ×3 (04:00→12:14)
[2019-09-12 04:14] LABS: Albumin 1.7 g/dL (3.4-5.0); Calcium 10.6 mg/dL (8.5-10.1); Potassium 4.6 mmol/L (3.5-5.1)
[2019-09-12 04:19] LABS: BUN/Creatinine Ratio 17.2; Bilirubin, Total 0.9 mg/dL (0.2-1.0)
--- NOTE | 2019-09-12 05:19 | NUR ---
ART LINE TUBE CHANGED. SITE APPEARS INTACT WITH GOOD BLOOD RETURN AND WAVE FORM, ZEROED
[2019-09-12] MEDS: METOCLOPRAMIDE HCL 5MG/ml INJ 2ml VIAL IV SCH ×3 (06:00→22:08)
[2019-09-12] MEDS: LEVOTHYROXINE SODIUM 50 MCG TAB PO SCH (06:24)
[2019-09-12] MEDS ORDERED: NOREPINEPHRINE BITARTRATE 16 MG in SODIUM CHL 0.9% 250 ML IV SCH (07:00)
--- NOTE | 2019-09-12 07:30 | NUR ---
REPORT REPORT RECEIVED FROM ASHANTI RNPETR. BEDSIDE CHECK DONE. PT RESTING IN BED, INTUBATED AND SEDATED WITH VSS. CONTINUE TO MONITOR.
[2019-09-12] MEDS: DexMEDEtomidine 400 MCG in D5W 5% 96 ML IV SCH ×2 (07:50→22:08)
--- NOTE | 2019-09-12 07:55 | NUR ---
PT TEACHING PT UNABLE TO BENEFIT FROM PT TEACHING AT THIS TIME PT IN INTUBATED AND SEDATED. Addendum: 09/12/19 at 1605 by Carey Clark RN Amended: Links added.
--- NOTE | 2019-09-12 07:55 | NUR ---
ASSESSMENT PT LAYING IN BED WITH EYES CLOSED. NO SPONTANEOUS MOVEMENT NOTED. SLIGHT COUGH AND GAG WITH ETT SUCTIONING. PT INTUBATED WITH A 8 FR ETT/26 AT THE LIP, TV 470, AC 20, PEEP OF 5 AND FIO2 60%. LUNGS SOUNDS COARSE ON INSPIRATION AND MILD EXPIRATORY WHEEZES. O2 SAT 96%. TELE ST [address] ELEVATION IN LEAD V. PALPABLE PULSES TO ALL EXTREMITIES, STRONG PALPABLE BUT WEAK TO BLE. FINGERTIPS TO RIGHT HAND AND LEFT RING FINGER ARE BLACKENED. TOES TO BOTH FEET ARE ALSO BLACK AND FIRM. RED BLOTCHES NOTED ON PT'S CHEST, AROUND NIPPLES, ABD, BOTH KNEES. HEAD OF PT'S PENIS IS BLACK AND SMALL AMOUNT OF BLEEDING NOTED FROM URETHRA AROUND MENSAH CATHETER. ABD SOFT WITH HYPOACTIVE BOWEL SOUNDS. RIGHT NARES NGT, WITH PLACEMENT VERIFIED BY AUSCULTATION AND WITH NO RESIDUAL NOTED. FEEDING OF NEPRO CARB STEADY AT 30 ML/HR, WHICH IS GOAL RATE. PT WITH FLEXISEAL IN PLACE AND DRAINING WATERY,LIQUID, REDDISH BROWN FLUID. DRESSINGS TO PT'S RFA AND BOTH FEET, ARE CLEAN AND DRY. MOIST RED SCABS NOTED TO BOTH OF PT'S LIPS AND TO THE LEFT CORNER OF THEE MOUTH. LARGE INTACT BLISTER NOTED ON THE SOLE OF THE RIGHT FOOT. PT REPOSITIONED FOR COMFORT TO HIS LEFT SIDE. PT NOTED TO HAVE REDNESS WITH AN INTACT BLISTER TO HIS RIGHT HIP, OPTIFOAM DRESSING IN PLACE. SACRAL OPTIFOAM IN PLACE WITH SKIN UNDER CLEAR. SKIN TEARS X2 TO THE RIGHT KNEE WITH OPTIFOAM DRESSINGS X2 IN PLACE. PT CURRENTLY WITH A PICC LINE 3 LUMEN TO THE RUE, DRESSING CHANGED 3/2. PT CURRENTLY ON LEVOPHED AT 30 MCG AND FENTANYL AT 150 MCG/HR. RAILS UP X4 WITH BED IN LOW POSITION FOR PT SAFETY. CONTINUE TO MONITOR.
[2019-09-12] MEDS: fentaNYL Drip 2500mCg/250mlNS 250 ML IV SCH ×2 (08:23→23:26)
[2019-09-12] MEDS: CALCIUM ACETATE 667 MG CAP PO SCH (08:33)
--- NOTE | 2019-09-12 09:00 | NUR ---
SEDATION VACATION TURNED FENTANYL FROM 150 MCG/HR TO 140 MCG/HR TO SEE HOW PT TOLERATES. CURRENTLY RIDING THE VENTILATOR WITH RR 20. CONTINUE TO MONITOR.
--- NOTE | 2019-09-12 09:30 | NUR ---
RR 25-28. RETURNED FENTANYL DRIP TO 150 MCG/HR. CONTINUE TO MONITOR.
--- NOTE | 2019-09-12 09:50 | NUR ---
RR 23-26. CONTINUE TO MONITOR. Addendum: 09/12/19 at 1547 by Carey Clark RN RECTAL TEMP OF 100.2 AND TURNED ON COOLING BLANKET , WHICH IS UNDER THE PT, TO WATER TEMP OF 70 DEGREES FAHRENHEIT.
[2019-09-12] MEDS: MEROPENEM 500MG IVPB 50 ML IV SCH ×2 (09:53→22:07)
[2019-09-12] MEDS: QUEtiapine FUMARATE 25 MG TAB PO SCH ×2 (09:54→22:08)
[2019-09-12] MEDS: PANTOPRAZOLE 40 MG/10 ML VIAL INJ IV SCH ×2 (09:54→22:08)
[2019-09-12] MEDS: SODIUM CHLOR 0.9% PF (SALINE LOCK) 10ML VIAL/SYR IV SCH ×2 (09:54→22:08)
--- NOTE | 2019-09-12 10:45 | NUR ---
TEMP NOW 100.6(R) AND SO DECREASED COOLING BLANKET WATER TEMP TO 60 DEGREES FAHRENHEIT. CONTINUE TO MONITOR.
--- NOTE | 2019-09-12 11:38 | NUR ---
ACCUCHECK OF 103 WITH NO COVERAGE NEEDED.
[2019-09-12] MEDS: ACETAMINOPHEN 325 MG TAB PO PRN ×2 (11:48→20:51)
--- NOTE | 2019-09-12 11:50 | NUR ---
PT TEMP UP TO 100.6 AND ADMINISTERED TYLENOL 650MG VIA NGT. COOLING BLANKET IN PLACE AND WATER TEMP NOW DOWN TO 50 DEGREES FAHRENHEIT. RECTAL PROBE IN PLACE AND CONTINUE TO MONITOR.
--- NOTE | 2019-09-12 12:14 | NUR ---
FAMILY PT'S SON AND DAUGHTER AT THE BEDSIDE AND UPDATED ON THE PT'S CURRENT CONDITION.
--- NOTE | 2019-09-12 12:20 | NUR ---
MD VISITS PT SEEN AND EXAMINED BY DESHAUN SOSA AND GAIL. THEY BOTH SPOKE WITH THE PT'S , 3 CHILDREN AND PT'S BROTHER REGARDING PT'S CONDITION, TREATMENT, POC AND POOR PROGNOSIS. FAMILY CHANGED CODE STATUS TO DNR BUT WILL CONTINUE FULL TREATMENT OTHERWISE.
[2019-09-12] MEDS: MIDAZOLAM DRIP 50 mg/50mL 50 ML IV SCH (14:54)
--- NOTE | 2019-09-12 15:53 | NUR ---
RECTAL TEMP NOW 99.5 . TURNED COOLING BLANKET OFF AND CONTINUE TO MONITOR TEMPERATURE.
[2019-09-12] MEDS: VASOPRESSIN 50 UNITS in D5W 5% 247.5 ML IV SCH (17:00)
--- NOTE | 2019-09-12 17:00 | NUR ---
TITRATING DOWN ON LEVOPHED BP TOLERATES. NOW AT 18 MCG. CONTINUE TO MONITOR.
[2019-09-12] MEDS: PROPOFOL 100 ML IV SCH (18:17)
--- NOTE | 2019-09-12 19:15 | NUR ---
REPORT GIVEN TO NIGHT RN, BEA, BEDSIDE CHECK DONE.
--- NOTE | 2019-09-12 19:30 | NUR ---
Opening Shift Note: Patient is intubated/sedated on ventilator. ET size 8.0/26 @ the lip. Vent settings: AC rate 20; vt 470; FiO2 decreased from 60 to 55% per respiratory; PEEP 5. Neuro: 3mm bilateral pupil size/sluggish. Facial grimacing with suctioning/spontaneous eye movement without tracking/flaccid extremities/hypoactive cough and gag. Sedation: Fentanyl currently at 150 mcg. HR is sinus tachycardia in 100s/110s; arterial line present in left axilla with SBPs 110s. Levophed decreased from 15 to 13 mcg. Radial and dorsalis pedis pulses are normal upon palpation. Bilateral hands +3 pitting edema/bilateral lower extremities +1 pitting edema. GI: NGT to right nare running Nephro Carb Steady at 30 ml/hr (goal) with a residual of 0 ml. Flex Seal rectal tube in place: stool is liquid brown. Temple[place] inserted on 09/01/19: output is yellow with sediment. Intermittent dialysis new for this admission per Nephro: last dialysis was 09/11/19 per report and 1725 ml was removed. Right jugular neda catheter dialysis access. Skin: multiple areas of scaly red/black lesions: upper/lower lips; left cheek; surrounding left nipple; LLQ/RLQ; BLE. Skin tears to right canales/knee area covered with optifoam CDI. Multiple areas of ecchymosis: right hand/fingers (all); left ring finger; bilateral forearms (dressings CDI); bilateral feet/toes. Necrosis of penis noted ABIOLA. Blisters noted to the posterior/anterior portion of bilateral feet (Dressings CDI). IV: RUE PICC triple lumen inserted on on 09/10/19. DNR code status: signed in hard chart. Will continue to round prn and reposition Q2H/prn.
[2019-09-12] MEDS: ACYCLOVIR SOD IV SCH (20:48)
[2019-09-12] MEDS: D5W 5% IV SCH (20:48)
--- NOTE | 2019-09-12 21:00 | NUR ---
Sedation Vacation: Will slowly wean down on Fentanyl for sedation vacation. Patient not previously able to tolerate decreased sedation as evidenced by increased respiratory rate. Will decrease to 140 mcg and assess patient tolerance.
--- NOTE | 2019-09-12 21:45 | NUR ---
Sedation Vacation update: Patient unable to tolerate 140 mcg. Respiratory rate is currently between 25-28 breaths/min. Fentanyl increased to 150 mcg.
[2019-09-13] VITALS (104 sets, daily range): BP systolic 87–156; BP diastolic 48–75
[2019-09-13] MEDS: ACCU-CHEK COMFORT CURVE STRIP VI SCH ×4 (00:09→18:00)
--- NOTE | 2019-09-13 02:40 | NUR ---
Propofol restarted: Propofol restarted at 5 mcg per protocol because patient is not in synchrony with vent. RR in high 20s; current AC rate 20. HR 130s and SBP in 130s-150s via A-line in left axilla.
[2019-09-13] MEDS: PROPOFOL 100 ML IV SCH ×2 (02:46→08:09)
--- NOTE | 2019-09-13 04:00 | NUR ---
Patient bathe/linen change Patient given complete CHG bath. All wound dressings changed per order. Skin integrity assessed for any changes. Linens and gown changed. Patient repositioned for comfort.
[2019-09-13 05:44] LABS: Basophils # (auto) 0 10 ^3/uL (0-0.2); Basophils % (auto) 0.4 % (0.0-2.0); Eosinophils # (auto) 0 10 ^3/uL (0-0.8); Eosinophils % (auto) 0.5 % (0.0-7.0); Hematocrit 23.5 % (41.0-53.0); Hemoglobin 7.9 g/dL (13.5-17.5); Lymphocytes # (auto) 0.7 10 ^3/uL (0.4-5.4); Lymphocytes % (auto) 7.2 % (10.0-50.0); Mean Corpuscular Hemoglobin 26.5 pg (28.0-32.0); Mean Corpuscular Hgb Conc. 33.8 g/dL (32.0-36.0); Mean Corpuscular Volume 78.5 fL (80.0-100.0); Monocytes # (auto) 0.4 10 ^3/uL (0-1.3); Monocytes % (auto) 4.2 % (0.0-12.0); Neutrophils # (auto) 8.5 10 ^3/uL (1.6-8.6); Neutrophils % (auto) 87.7 % (37.0-80.0); Platelet Count (auto) 372 10^3/uL (140-450); Red Blood Cells 2.99 10^6/uL (4.5-5.90); Red Cell Distribution Width 18.5 % (11.8-14.3); White Blood Cell 9.6 10^3/uL (4.4-10.8)
[2019-09-13] MEDS: InsuLIN REG 1unit/0.01ml Soln (100units/ml) SC SCH ×4 (06:00→18:00)
[2019-09-13 06:04] LABS: Albumin 1.4 g/dL (3.4-5.0); BUN/Creatinine Ratio 17.4; Calcium 9.5 mg/dL (8.5-10.1); Potassium 4.9 mmol/L (3.5-5.1)
[2019-09-13] MEDS: METOCLOPRAMIDE HCL 5MG/ml INJ 2ml VIAL IV SCH ×3 (06:10→22:01)
[2019-09-13] MEDS: LEVOTHYROXINE SODIUM 50 MCG TAB PO SCH (06:10)
[2019-09-13 06:13] LABS: Bilirubin, Total 0.9 mg/dL (0.2-1.0); Total Protein 5.6 g/dL (6.4-8.2)
--- NOTE | 2019-09-13 07:15 | NUR ---
Report given to day shift ИРИНА Patino.
[2019-09-13] MEDS: ALBUTEROL SULF 2.5 MG/0.5ML(0.5%) NEB SOLN NEB SCH ×3 (07:26→18:27)
[2019-09-13] MEDS: IPRATROPIUM BROM 0.5 MG/2.5ML INH SOL NEB SCH ×3 (07:26→18:27)
--- NOTE | 2019-09-13 07:30 | NUR ---
REPORT RECEIVED FROM NIGHT RN. BEDSIDE CHECK DONE.
--- NOTE | 2019-09-13 07:47 | NUR ---
ASSESSMENT PT WITH EYES CLOSED ,SEDATED ON FENTANYL AND DIPRIVAN. NO SPONTANEOUS MOVEMENT NOTED. ON THE VENTILATOR WITH 8 FE ETT/24 AT THE LIP, TV 470, AC 20, 55% FIO2 AND PEEP OF 5. LUNGS CLEAR AND DIMINISHED. O2 AT OF 97%. TELE ST 108. PALPABLE PULSES TO ALL EXTREMITIES. ABD SOFT WITH HYPOACTIVE BOWEL SOUNDS. NGT TO THE RIGHT NARES WITH NEPRO CARB STEADY AT 30 ML/HR WITH NO RESIDUAL. FLEXISEAL DRAINING LIQUID BROWN STOOL. MENSAH DRAINING YELLOW URINE WITH SEDIMENT. ON SPECIALTY BED FOR SKIN PROTECTION. SEE WOUND CARE ASSESSMENT FOR SKIN CONDITION. TURNED FOR COMFORT.
--- NOTE | 2019-09-13 09:00 | NUR ---
SEDATION VACATION TITRATING DOWN ON SEDATION. WILL CONTINUE TO MONITOR SECOND SEDATION MED WAS STARTED LAST NIGHT DUE TO SHIVERING Addendum: 09/13/19 at 1025 by Carey Clark RN Amended: Links added.
--- NOTE | 2019-09-13 10:00 | NUR ---
DRESSING CHANGES DONE BY BEA BURRELL RN, AT 0500 Addendum: 09/13/19 at 2033 by Carey Clark RN Amended: Links added.
--- NOTE | 2019-09-13 10:05 | NUR ---
HDX STARTED. WILL TITRATE LEVOPHED DRIP NEEDED DURING HDX.
[2019-09-13] MEDS ORDERED: ALBUMIN 25% 100 ML IV ONE (10:30)
--- NOTE | 2019-09-13 11:06 | NUR ---
HDX IN PROGRESS. PT'S BP 100/56 AND INCREASED LEVOPHED FROM 20 MCG TO 23 MCG/MIN AND DECREASED DIPRIVAN FROM 15 TO 12 MCG/KG/MIN TO ALOW FLUID REMOVAL. CONTINUE TO MONITOR BP.
[2019-09-13] MEDS: fentaNYL Drip 2500mCg/250mlNS 250 ML IV SCH ×2 (12:23→23:47)
[2019-09-13] MEDS ORDERED: diphenhdrAMINE HCL 50 MG/1 ML VL IV PRN (13:00)
[2019-09-13] MEDS: QUEtiapine FUMARATE 25 MG TAB PO SCH ×2 (13:57→22:02)
[2019-09-13] MEDS: SODIUM CHLOR 0.9% PF (SALINE LOCK) 10ML VIAL/SYR IV SCH ×2 (13:57→22:02)
[2019-09-13] MEDS: PANTOPRAZOLE 40 MG/10 ML VIAL INJ IV SCH ×2 (13:57→22:00)
[2019-09-13] MEDS: MEROPENEM 500MG IVPB 50 ML IV SCH ×2 (13:57→23:45)
[2019-09-13] MEDS: DexMEDEtomidine 400 MCG in D5W 5% 96 ML IV SCH (13:58)
[2019-09-13] MEDS: MIDAZOLAM DRIP 50 mg/50mL 50 ML IV SCH (14:54)
[2019-09-13] MEDS: NOREPINEPHRINE BITARTRATE 16 MG in SODIUM CHL 0.9% 250 ML IV SCH (15:02)
--- NOTE | 2019-09-13 15:27 | NUR ---
NUTRITION FOLLOW UP NOTES Pt wt is 131.6 kg today. Pt continues on pressors, sedated and on ventilator support. Sons at bedside state patient is DNR status. Very poor prognosis. Pt on HD today. Pt is currently NPO, sedated with Propofol at 15.78 ml/hr and with nutrition support of Nepro with Carb Steady @ 30 ml/hr, with no residuals, providing 72%-93% of energy needs (which includes the propofol at the current rate), 51%-60% of protein needs and 523 ml free water. Will continue to monitor pertinent labs and reassess nutrient needs prn. Estimated Needs: 3069-1060 kcal (14-18 kcal/kgBW), 97 to 113 gms protein (1.2-1.4 gms/kg Adjusted BW). Labs: Na 131 L, Cl 95 L, BUN 131 H, Cr 7.54 H, Serum glucose 116 H, Alb 1.4 L, GFR 8 L GI: Last BM noted on 09/12/19 as diarrhea, per senior windows administrator. BS: 11, high risk Please see wound assessment report for full details. PES: 1) Altered nutrition related lab values R/T current acute/chronic medical condition AEB elevated RFTs, hyperglycemia, hypertriglyceridemia. 2) Obese, Class III R/T excessive energy intake prior to admission AEB %IBW 218 and BMI 50. 3) Inadequate energy intake R/T 0% PO intake and increased energy needs AEB pt under sedation, intubation and NPO status (Resolved) Comments Will continue to monitor PO intake, pertinent labs, skin status and weight trends. F/u in 2 to 3 days. Additional Recommendations: 1) Continue to carefully monitor pt PN and EN status. 2) Continue current plan of care. ADDITIONAL RECOMMENDATION: 1) When ready to wean off TPN, gradually advance EN support of Nepro with Carb Steady to goal rate @50ml/hr.
[2019-09-13] MEDS ORDERED: VANCOMYCIN 500 MG in D5W 5% 100 ML IV ONE (17:00)
[2019-09-13] MEDS: VASOPRESSIN 50 UNITS in D5W 5% 247.5 ML IV SCH (17:00)
--- NOTE | 2019-09-13 19:30 | NUR ---
BEDSIDE REPORT GIVEN TO NIGHT RN LESLIE
[2019-09-13] MEDS ORDERED: EPOETIN ALFA 10,000 UNIT/1 ML VIAL SC ONE (21:00)
[2019-09-13] MEDS: ACYCLOVIR SOD IV SCH (21:10)
[2019-09-13] MEDS: D5W 5% IV SCH (21:10)
[2019-09-14] VITALS (67 sets, daily range): BP systolic 80–160; BP diastolic 46–83
[2019-09-14] MEDS: IPRATROPIUM BROM 0.5 MG/2.5ML INH SOL NEB SCH ×3 (00:15→12:29)
[2019-09-14] MEDS: ALBUTEROL SULF 2.5 MG/0.5ML(0.5%) NEB SOLN NEB SCH ×3 (00:15→12:29)
[2019-09-14] MEDS: ACCU-CHEK COMFORT CURVE STRIP VI SCH ×3 (00:26→12:22)
[2019-09-14 04:07] LABS: Basophils # (auto) 0.1 10 ^3/uL (0-0.2); Eosinophils # (auto) 0.1 10 ^3/uL (0-0.8); Hemoglobin 7.9 g/dL (13.5-17.5); Neutrophils # (auto) 7.6 10 ^3/uL (1.6-8.6)
[2019-09-14 04:10] LABS: Basophils % (auto) 0.6 % (0.0-2.0); Eosinophils % (auto) 0.9 % (0.0-7.0); Hematocrit 25.1 % (41.0-53.0); Lymphocytes # (auto) 0.7 10 ^3/uL (0.4-5.4); Lymphocytes % (auto) 8.2 % (10.0-50.0); Mean Corpuscular Hgb Conc. 31.5 g/dL (32.0-36.0); Mean Corpuscular Volume 79.2 fL (80.0-100.0); Monocytes # (auto) 0.5 10 ^3/uL (0-1.3); Monocytes % (auto) 5.1 % (0.0-12.0); Neutrophils % (auto) 85.2 % (37.0-80.0); Platelet Count (auto) 386 10^3/uL (140-450); Red Blood Cells 3.16 10^6/uL (4.5-5.90); Red Cell Distribution Width 18.5 % (11.8-14.3); White Blood Cell 8.9 10^3/uL (4.4-10.8)
[2019-09-14 04:29] LABS: Albumin 1.5 g/dL (3.4-5.0); Calcium 10.3 mg/dL (8.5-10.1); Potassium 4.2 mmol/L (3.5-5.1)
[2019-09-14 04:35] LABS: BUN/Creatinine Ratio 16.4; Bilirubin, Total 0.7 mg/dL (0.2-1.0); Total Protein 5.9 g/dL (6.4-8.2)
--- NOTE | 2019-09-14 05:00 | NUR ---
BED BATH GIVEN, LINENS CHANGED, PT TOLERATING WELL. WILL CONTINUE TO MONITOR. SAFETY PRECAUTIONS IN PLACE.
[2019-09-14] MEDS: ACETAMINOPHEN 325 MG TAB PO PRN ×2 (05:15→12:30)
--- NOTE | 2019-09-14 05:15 | NUR ---
ELEVATED TEMP 101.3, TYL AND COOLING MEASURES GIVEN, PT TOLERATING WELL. WILL CONTINUE TO MONITOR. SAFETY PRECAUTIONS IN PLACE.
[2019-09-14] MEDS: DexMEDEtomidine 400 MCG in D5W 5% 96 ML IV SCH (05:20)
[2019-09-14] MEDS: InsuLIN REG 1unit/0.01ml Soln (100units/ml) SC SCH ×3 (06:00→12:00)
[2019-09-14] MEDS: METOCLOPRAMIDE HCL 5MG/ml INJ 2ml VIAL IV SCH ×2 (06:00→13:44)
[2019-09-14] MEDS: LEVOTHYROXINE SODIUM 50 MCG TAB PO SCH (07:00)
--- NOTE | 2019-09-14 08:15 | NUR ---
DR. SOSA AT BEDSIDE. SEE MD NOTES AND EMR FOR ANY NEW ORDERS.
--- NOTE | 2019-09-14 09:00 | NUR ---
SEDATION VACATION FENTANYL TURNED OFF AT THIS TIME, WILL CONTINUE TO ASSESS FOR NEED OF SEDATION.
--- NOTE | 2019-09-14 09:24 | NUR ---
SON AT BEDSIDE STATED," NO TERMINAL WEAN TODAY."
--- NOTE | 2019-09-14 09:38 | NUR ---
SPOKE WITH SON DEANNA REGARDING PATIENTS CONTINUED DECLINE IN BLOOD PRESSURE AND FACT PATIENT IS A DNR. DEANNA STATED NO MORE VASOPRESSORS AND TO LET PATIENT TAKE NORMAL COURSE HOWEVER, HE STILL WANTS PATIENT COMFORTABLE AT ALL TIMES. ASSURED DEANNA THAT PATIENT WOULD BE KEPT COMFORTABLE.
[2019-09-14] MEDS: PANTOPRAZOLE 40 MG/10 ML VIAL INJ IV SCH (09:59)
[2019-09-14] MEDS: QUEtiapine FUMARATE 25 MG TAB PO SCH (10:00)
[2019-09-14] MEDS: MEROPENEM 500MG IVPB 50 ML IV SCH (10:00)
[2019-09-14] MEDS: SODIUM CHLOR 0.9% PF (SALINE LOCK) 10ML VIAL/SYR IV SCH (10:00)
--- NOTE | 2019-09-14 11:18 | NUR ---
DR. REYNOLDS HERE TO SEE PATIENT. SEE MD NOTES AND EMR FOR ANY NEW ORDERS.
[2019-09-14] MEDS ORDERED: LORazepam 2MG/ML-1ML VIAL IV PRN (11:45)
[2019-09-14] MEDS: MORPHINE SULF INJ 2 MG/ML SYRINGE 1ML IV PRN ×2 (12:22→14:50)
--- NOTE | 2019-09-14 13:00 | NUR ---
PATIENT STARTED ON COOLING MEASURES, COOLING BLANKET IN PLACE.
--- NOTE | 2019-09-14 13:26 | NUR ---
FAMILY AT BEDSIDE, UPDATED ON POC. SARAH HUERTA STATES THAT IN ABOUT ONE HOUR THEY WANT TO TERMINALLY WEAN THE PATIENT.
--- NOTE | 2019-09-14 14:24 | NUR ---
RT NOTE: FAMILY HAS REQUESTED TO STOP ALL VENT CHECKS SO THAT FAMILY CAN HAVE THEIR TIME TO SAY GOOD BYE UNINTERRUPTED. FAMILY WILL LET MYSELF AND THE RN NOW WHEN THEY ARE READY TO MOVE FORWARD WITH THE TERMINAL EXTUBATION.
--- NOTE | 2019-09-14 14:40 | NUR ---
RT NOTE: PT HAS BEEN TERMINALLY EXTUBATED. FAMILY WAS BEDSIDE ALONG WITH RN WHO GAVE COMFORT MEASURE MEDICATIONS AND ASSISTED WITH EXTUBATION.
--- NOTE | 2019-09-14 15:13 | NUR ---
FAMILY REMAINS AT BEDSIDE. PATIENT O2 SATS CURRENTLY IN THE 30'S.
--- NOTE | 2019-09-14 16:05 | NUR ---
CALL TO DR. REYNOLDS TO INFORM OF PATIENT BEING ASYSTOLE. DR. REYNOLDS NOT CURRENTLY IN THE HOSPITAL AND ASKING IF MIN ZHU CAN COME PRONOUNCE, POLINA ZHU INFORMED AND IS ON HER WAY.
--- NOTE | 2019-09-14 16:09 | NUR ---
PRONOUNCEMENT OF ASKED TO PRONOUNCE PT DUE TO PMD UNAVAILABLE. PT WAS DNR, TERMINALLY WEANED. FOUND PULSELESS, APNEIC. ASYSTOLE IN 3 LEADS. AFTER ONE FULL MINUTE OF AUSCULTATION, NO PULSE OR RESPIRATIONS. NO CORNEAL, GAG REFLEXES OR DTR'S. TOD 1609.
--- NOTE | 2019-09-14 16:14 | NUR ---
[facility] CALLED TO REPORT . SPOKE TO LINUS @ [phone]
--- NOTE | 2019-09-14 16:23 | NUR ---
[facility] RELEASED BODY CASE # [id number].
--- NOTE | 2019-09-14 16:28 | NUR ---
CALL OUT TO [facility] @ [phone].
--- NOTE | 2019-09-14 16:39 | NUR ---
FAMILY HAS CHOSEN [facility].
--- NOTE | 2019-09-14 19:00 | NUR ---
OPENING NOTE ASSUMED CARE OF PATIENT AT THIS TIME. AWAITING STAFF PHYSICAL THERAPY ASSISTANT RELEASE OF PATIENT AT THIS TIME. NO FAMILY AT BEDSIDE.
--- NOTE | 2019-09-14 21:44 | NUR ---
PLACED CALL TO CLASSIF[facility] TAKER OFFICE TO CHECK ON STATUS OF PT CASE. SEVERAL CASES AHEAD AT THIS TIME, STILL PENDING CALL BACK. CALL PLACED TO [phone]
--- NOTE | 2019-09-14 22:58 | NUR ---
[employer] case # [id number] spoke with Trisha Roa. Pt released at this time.
--- NOTE | 2019-09-14 23:37 | NUR ---
[facility] Spoke with Vicki at [phone]. Information of pt given. Awaiting pickup.
--- NOTE | 2019-09-15 01:23 | NUR ---
Patient off unit at this time
== END 2019-09-15 01:29 | disposition expired | DRG 870 ==
LOC: ER 11:46 → EDBD 11:46 → TELE 11:47 → ICU WEST 20:00
PROVIDERS: ADMIT Nurse Practitioner Acute Care; ATTEND Internal Medicine
PROC: 5A1955Z Respiratory Ventilation, Greater than 96 Consecutive Hours (ICD-10-PCS; 2019-08-30)
PROC: 5A09357 Assistance with Respiratory Ventilation, Less than 24 Consecutive Hours, Continuous Positive Airway Pressure (ICD-10-PCS; 2019-08-30)
PROC: 0BH17EZ Insertion of Endotracheal Airway into Trachea, Via Natural or Artificial Opening (ICD-10-PCS; 2019-08-30)
PROC: 03HY32Z Insertion of Monitoring Device into Upper Artery, Percutaneous Approach (ICD-10-PCS; principal; 2019-08-31)
PROC: 4A133B1 Monitoring of Arterial Pressure, Peripheral, Percutaneous Approach (ICD-10-PCS; 2019-08-31)
PROC: 4A133J1 Monitoring of Arterial Pulse, Peripheral, Percutaneous Approach (ICD-10-PCS; 2019-08-31)
PROC: 02HV33Z Insertion of Infusion Device into Superior Vena Cava, Percutaneous Approach (ICD-10-PCS; 2019-09-01)
PROC: B548ZZA Ultrasonography of Superior Vena Cava, Guidance (ICD-10-PCS; 2019-09-01)
PROC: 30233R1 Transfusion of Nonautologous Platelets into Peripheral Vein, Percutaneous Approach (ICD-10-PCS; 2019-09-01)
PROC: 30233K1 Transfusion of Nonautologous Frozen Plasma into Peripheral Vein, Percutaneous Approach (ICD-10-PCS; 2019-09-05)
PROC: 30233N1 Transfusion of Nonautologous Red Blood Cells into Peripheral Vein, Percutaneous Approach (ICD-10-PCS; 2019-09-05)
PROC: 02HV33Z Insertion of Infusion Device into Superior Vena Cava, Percutaneous Approach (ICD-10-PCS; 2019-09-10)
PROC: B548ZZA Ultrasonography of Superior Vena Cava, Guidance (ICD-10-PCS; 2019-09-10)
DX: A41.51 Sepsis due to Escherichia coli [E. coli] (principal); E43 Unspecified severe protein-calorie malnutrition; I50.33 Acute on chronic diastolic (congestive) heart failure; J96.01 Acute respiratory failure with hypoxia; N17.0 Acute kidney failure with tubular necrosis; R65.21 Severe sepsis with septic shock; K72.00 Acute and subacute hepatic failure without coma; I21.A1 Myocardial infarction type 2; J15.6 Pneumonia due to other Gram-negative bacteria; J96.02 Acute respiratory failure with hypercapnia; Z99.11 Dependence on respirator [ventilator] status; N13.8 Other obstructive and reflux uropathy; I96 Gangrene, not elsewhere classified; N18.5 Chronic kidney disease, stage 5; E11.52 Type 2 diabetes mellitus with diabetic peripheral angiopathy with gangrene; K56.7 Ileus, unspecified; E87.1 Hypo-osmolality and hyponatremia; Z68.42 Body mass index [BMI] 45.0-49.9, adult; D50.9 Iron deficiency anemia, unspecified; Z66 Do not resuscitate; D69.6 Thrombocytopenia, unspecified; E03.9 Hypothyroidism, unspecified; E66.9 Obesity, unspecified; N40.1 Benign prostatic hyperplasia with lower urinary tract symptoms; N32.0 Bladder-neck obstruction; D69.59 Other secondary thrombocytopenia; E78.1 Pure hyperglyceridemia; E87.5 Hyperkalemia; F41.9 Anxiety disorder, unspecified; N21.0 Calculus in bladder; K31.84 Gastroparesis; B00.1 Herpesviral vesicular dermatitis; N26.1 Atrophy of kidney (terminal); E11.22 Type 2 diabetes mellitus with diabetic chronic kidney disease; E11.43 Type 2 diabetes mellitus with diabetic autonomic (poly)neuropathy; E11.42 Type 2 diabetes mellitus with diabetic polyneuropathy; N30.91 Cystitis, unspecified with hematuria; E55.9 Vitamin D deficiency, unspecified; Z51.5 Encounter for palliative care; Z80.0 Family history of malignant neoplasm of digestive organs; Z80.1 Family history of malignant neoplasm of trachea, bronchus and lung; Z80.42 Family history of malignant neoplasm of prostate; Z80.3 Family history of malignant neoplasm of breast; Z80.8 Family history of malignant neoplasm of other organs or systems; Z81.8 Family history of other mental and behavioral disorders; Z82.0 Family history of epilepsy and other diseases of the nervous system; Z82.3 Family history of stroke; Z82.49 Family history of ischemic heart disease and other diseases of the circulatory system; Z82.5 Family history of asthma and other chronic lower respiratory diseases; Z83.3 Family history of diabetes mellitus; Z87.11 Personal history of peptic ulcer disease; Z87.442 Personal history of urinary calculi; Z87.440 Personal history of urinary (tract) infections; Z82.62 Family history of osteoporosis
CPT/HCPCS: 31500; 36415; 36556; 36569; 36600; 71045; 74018; 74176; 76870; 80048; 80053; 80061; 80202; 81001; 82040; 82270; 82306; 82550; 82570; 82728; 82805; 82962; 83036; 83520; 83540; 83550; 83605; 83735; 83880; 83970; 84100; 84132; 84156; 84439; 84443; 84478; 84481; 84484; 85007; 85025; 85027; 85301; 85362; 85379; 85384; 85610; 85730; 86038; 86160; 86256; 86431; 86850; 86900; 86901; 86920; 87040; 87070; 87077; 87081; 87086; 87186; 87205; 87340; 90935; 93005; 93306; 93926; 93930; 93971; 94002; 94003; 94640; 94644; 99291; C9113; G0378; J0133; J0330; J0696; J0885; J1642; J1815; J1956; J2185; J2250; J2543; J2704; J3480; J3490; J7060; J7131; P9047